=== PATIENT | female | born 1950 | race Caucasian/White ===

== ENCOUNTER 2021-03-05 15:07 | Inpatient (IN) | payer MEDICARE, MEDICAID ==
[2021-03-05 19:34] LABS: #Monocytes 0.6 10x3/uL (0.0-1.1); #Neutrophils 5.6 10x3/uL (1.5-8.4); %Basophils 0.3 % (0.0-2.0); %Eosinophils 0.4 % (0.0-6.0); %Lymphocytes 9.9 % (18.0-47.0); %Monocytes 8.6 % (0.0-10.0); %Neutrophils 80.4 % (40.0-75.0); Hemoglobin 9.4 g/dL (12.0-15.5); Mean Corpuscular HGB CONC 33.8 g/dL (32.0-36.0); Mean Corpuscular Hemoglobin 30.1 pg (27.0-33.0); Mean Corpuscular Volume 89.1 fl (81.6-98.3); Mean Platelet Volume 11.3 fl (7.4-10.4); Platelet Count 101 10x3/uL (150-450); RBC Distribution Width 13.9 % (11.5-14.5); Red Blood Cell (RBC) Count 3.12 10x6/uL (3.90-5.03)
[2021-03-05 19:42] LABS: ALT (SGPT) 7 U/L (8-55); AST (SGOT) 10 U/L (5-34); Albumin 3.2 g/dL (3.4-4.8); Alkaline Phosphatase 93 U/L (40-110); Anion Gap 13 mmol/L (10-20); BUN (Urea Nitrogen) 21 mg/dL (9.8-20.1); Bilirubin, Total 0.9 mg/dL (0.2-1.2); Calc. Creatinine Clearance 0 mL/min (70-130); Calcium 8.8 mg/dL (7.8-10.44); Carbon Dioxide 31 mmol/L (23-31); Chloride 92 mmol/L (98-107); Protein, Total 6.2 g/dL (5.8-8.1); Sodium 133 mmol/L (136-145)
[2021-03-05 19:44] LABS: Glucose 721 mg/dL (80-115)
[2021-03-05] MEDS ORDERED: HumaLOG 300 UNITS/3 ML VIAL SC SCH (20:30)
[2021-03-05] MEDS ORDERED: Potassium Chloride 20 MEQ TAB ONE (20:42)
[2021-03-06] MEDS ORDERED: Dextrose 50% Abboject 50 ML SYRINGE SLOW IVP PRN ×2 (01:01→05:46)
[2021-03-06] MEDS ORDERED: Insulin Regular 300 UNITS/3 ML VIAL SC PRN (01:01)
[2021-03-06] MEDS ORDERED: Dextrose 5% in Water 1,000 ML IV PRN ×2 (01:01→05:46)
[2021-03-06] MEDS ORDERED: Vancomycin 1 GM in Premix Bag 1 BAG IVPB PRN (01:01)
[2021-03-06] MEDS ORDERED: Nitroglycerin 0.4 MG TAB (25 Tab Bottle) SL PRN (01:19)
[2021-03-06] MEDS ORDERED: Ondansetron PF 4 MG/2 ML Vial IVP PRN (02:36)
[2021-03-06] MEDS ORDERED: Acetaminophen 325 MG TAB PO PRN (02:37)
[2021-03-06] MEDS ORDERED: Potassium Chloride 20 MEQ TAB PO SCH ×2 (03:00→06:00)
[2021-03-06] MEDS: NS 0.9% w/ 20 MEQ KCL 1,000 ML/1,000 ML BAG IV SCH ×3 (03:15→17:18)
[2021-03-06] MEDS ORDERED: Vancomycin HCl 500 MG in Sodium Chloride 0.9% 100 ML IVPB SCH (03:15)
[2021-03-06] MEDS ORDERED: FLU VACC QS2021-22(65YR UP)/PF 240 MCG/0.7 ML SYRINGE IM ONE (03:45)
[2021-03-06] MEDS: Cefepime 2 GM in Sodium Chloride 0.9% 100 ML IVPB SCH ×2 (03:46→17:18)
[2021-03-06 04:13] LABS: #Eosinphils 0.1 10x3/uL (0.0-0.5); #Monocytes 0.7 10x3/uL (0.0-1.1); #Neutrophils 6.2 10x3/uL (1.5-8.4); %Basophils 0.4 % (0.0-2.0); %Eosinophils 0.8 % (0.0-6.0); %Lymphocytes 11.4 % (18.0-47.0); %Monocytes 8.7 % (0.0-10.0); %Neutrophils 78.2 % (40.0-75.0); Hemoglobin 9.1 g/dL (12.0-15.5); Mean Corpuscular HGB CONC 34.1 g/dL (32.0-36.0); Mean Corpuscular Hemoglobin 30.4 pg (27.0-33.0); Mean Corpuscular Volume 89.3 fl (81.6-98.3); Mean Platelet Volume 11.7 fl (7.4-10.4); Platelet Count 115 10x3/uL (150-450); RBC Distribution Width 13.9 % (11.5-14.5); Red Blood Cell (RBC) Count 2.99 10x6/uL (3.90-5.03); White Blood Cell (WBC) Count 7.9 10x3/uL (3.5-10.5)
[2021-03-06 04:39] LABS: Anion Gap 15 mmol/L (10-20); BUN (Urea Nitrogen) 18 mg/dL (9.8-20.1); Calc. Creatinine Clearance 39 mL/min (70-130); Calcium 8.2 mg/dL (7.8-10.44); Carbon Dioxide 28 mmol/L (23-31); Chloride 100 mmol/L (98-107); Glucose 201 mg/dL (80-115); Magnesium 1.7 mg/dL (1.6-2.6); Sodium 140 mmol/L (136-145)
[2021-03-06 04:49] LABS: Potassium 2.9 mmol/L (3.5-5.1)
[2021-03-06 05:24] LABS: Amphetamine Not Detected (NotDetected); Barbiturates Screen Not Detected (NotDetected); Benzodiazepine Screen Not Detected (NotDetected); Cocaine Metabolite Screen Not Detected (NotDetected); Methadone Not Detected (NotDetected); Methamphetamine Not Detected (NotDetected); Opiate Screen Not Detected (NotDetected); Oxycodone Screen Not Detected (NotDetected); Phencyclidine (PCP) Not Detected (NotDetected); THC/Cannabinoid Screen Not Detected (NotDetected); Tricyclic Screen Not Detected (NotDetected)
[2021-03-06] MEDS ORDERED: Labetalol HCl 100 MG/20 ML VIAL SLOW IVP SCH (06:00)
[2021-03-06] MEDS ORDERED: Enoxaparin Sodium 30 MG/0.3 ML SYRINGE ONE (08:45)
[2021-03-06] MEDS: Aspirin 81 mg Enteric Coated Tablet PO SCH (08:47)
[2021-03-06] MEDS: Labetalol HCl 100 MG TAB PO SCH ×2 (08:48→20:31)
[2021-03-06] MEDS: Cholecalciferol 1,000 UNITS (25 MCG) TAB PO SCH ×2 (08:48→20:14)
[2021-03-06] MEDS ORDERED: Lantus 1000 UNITS/10 ML VIAL SC SCH ×2 (09:00→21:00)
[2021-03-06] MEDS ORDERED: Enoxaparin Sodium 30 MG/0.3 ML SYRINGE SC SCH (09:00)
[2021-03-06] MEDS: HumaLOG 300 UNITS/3 ML VIAL SC PRN ×3 (12:40→20:16)
[2021-03-06 16:08] LABS: SARS-CoV-2 PCR by NAA Not Detected (NotDetected)
[2021-03-06] MEDS: Atorvastatin Calcium 40 MG TAB PO SCH (20:14)
[2021-03-07] MEDS ORDERED: cloNIDine 0.1 MG TAB PO SCH (03:30)
[2021-03-07] MEDS: Cefepime 2 GM in Sodium Chloride 0.9% 100 ML IVPB SCH ×2 (03:51→16:53)
[2021-03-07 04:10] LABS: #Eosinphils 0.1 10x3/uL (0.0-0.5); #Monocytes 0.5 10x3/uL (0.0-1.1); #Neutrophils 3.9 10x3/uL (1.5-8.4); %Basophils 0.2 % (0.0-2.0); %Eosinophils 1.7 % (0.0-6.0); %Lymphocytes 16.7 % (18.0-47.0); %Monocytes 9.3 % (0.0-10.0); %Neutrophils 71.7 % (40.0-75.0); Hemoglobin 8.7 g/dL (12.0-15.5); Mean Corpuscular HGB CONC 32.3 g/dL (32.0-36.0); Mean Corpuscular Hemoglobin 29.8 pg (27.0-33.0); Mean Corpuscular Volume 92.1 fl (81.6-98.3); Mean Platelet Volume 12.1 fl (7.4-10.4); Platelet Count 104 10x3/uL (150-450); RBC Distribution Width 14.3 % (11.5-14.5); Red Blood Cell (RBC) Count 2.92 10x6/uL (3.90-5.03); White Blood Cell (WBC) Count 5.4 10x3/uL (3.5-10.5)
[2021-03-07 04:29] LABS: Vancomycin, Random 5.3 ug/mL (See Comment)
[2021-03-07] MEDS: NS 0.9% w/ 20 MEQ KCL 1,000 ML/1,000 ML BAG IV SCH (04:41)
[2021-03-07 04:52] LABS: Free T4 (Free Thyroxine) 1.34 ng/dL (0.70-1.48)
[2021-03-07 05:03] LABS: Anion Gap 9 mmol/L (10-20); BUN (Urea Nitrogen) 21 mg/dL (9.8-20.1); CRP (Inflammatory) 9.21 mg/dL (= or < 0.5); Calc. Creatinine Clearance 42 mL/min (70-130); Carbon Dioxide 26 mmol/L (23-31); Chloride 106 mmol/L (98-107); Glucose 330 mg/dL (80-115); Magnesium 1.6 mg/dL (1.6-2.6); Potassium 4.4 mmol/L (3.5-5.1); Sodium 137 mmol/L (136-145)
[2021-03-07] MEDS: HumaLOG 300 UNITS/3 ML VIAL SC PRN ×4 (05:30→20:17)
[2021-03-07] MEDS: Vancomycin HCl 750 MG in Sodium Chloride 0.9% 250 ML 250 ML IVPB SCH (05:38)
[2021-03-07] MEDS ORDERED: Furosemide 40 MG/4 ML VIAL SLOW IVP SCH (06:30)
[2021-03-07] MEDS ORDERED: Labetalol HCl 100 MG/20 ML VIAL SLOW IVP SCH (06:30)
[2021-03-07] MEDS ORDERED: Potassium Bicarbonate/Cit Ac 20 MEQ TAB PO SCH (07:30)
[2021-03-07] MEDS: Aspirin 81 mg Enteric Coated Tablet PO SCH (08:52)
[2021-03-07] MEDS: Labetalol HCl 100 MG TAB PO SCH (08:52)
[2021-03-07] MEDS: Enoxaparin Sodium 40 MG/0.4 ML SYRINGE SC SCH (08:52)
[2021-03-07] MEDS: Cholecalciferol 1,000 UNITS (25 MCG) TAB PO SCH ×2 (08:52→20:30)
[2021-03-07] MEDS ORDERED: Lantus 1000 UNITS/10 ML VIAL SC SCH (09:00)
[2021-03-07 12:17] LABS: Hemoglobin A1c 12.5 % (4.0-6.0)
[2021-03-07] MEDS ORDERED: HYDROcodone/Acetaminophen 5/325 mg Tablet PO PRN (14:22)
[2021-03-07] MEDS ORDERED: Lisinopril 10 MG TAB PO SCH (16:30)
[2021-03-07] MEDS ORDERED: hydrALAZINE 20 MG/ML VIAL SLOW IVP SCH (16:30)
[2021-03-07] MEDS: Lantus 1000 UNITS/10 ML VIAL SC SCH (20:16)
[2021-03-07] MEDS: Amlodipine 5 MG TAB PO SCH (20:30)
[2021-03-07] MEDS: Atorvastatin Calcium 40 MG TAB PO SCH (20:30)
[2021-03-07] MEDS ORDERED: ICOSAPENT ETHYL 1 GM PO SCH (21:00)
[2021-03-07] MEDS ORDERED: Pregabalin 75 MG CAP PO SCH (22:00)
[2021-03-07] MEDS: Pregabalin 75 MG CAP PO SCH (22:24)
[2021-03-08] MEDS: Cefepime 2 GM in Sodium Chloride 0.9% 100 ML IVPB SCH ×2 (04:11→17:03)
[2021-03-08] MEDS: Vancomycin HCl 750 MG in Sodium Chloride 0.9% 250 ML 250 ML IVPB SCH (06:09)
[2021-03-08] MEDS: Pregabalin 75 MG CAP PO SCH ×4 (06:10→22:00)
[2021-03-08] MEDS ORDERED: IMATINIB MESYLATE 400 MG PO SCH (09:00)
[2021-03-08] MEDS: Enoxaparin Sodium 40 MG/0.4 ML SYRINGE SC SCH (09:10)
[2021-03-08] MEDS: Potassium Chloride 20 MEQ TAB PO SCH (09:11)
[2021-03-08] MEDS: Aspirin 81 mg Enteric Coated Tablet PO SCH (09:12)
[2021-03-08] MEDS: Lantus 1000 UNITS/10 ML VIAL SC SCH ×2 (09:12→21:00)
[2021-03-08] MEDS: Lisinopril 20 MG TAB PO SCH (09:12)
[2021-03-08] MEDS: Cholecalciferol 1,000 UNITS (25 MCG) TAB PO SCH ×2 (09:12→21:00)
[2021-03-08] MEDS: Furosemide 40 MG TAB PO SCH (09:12)
[2021-03-08] MEDS: Amlodipine 5 MG TAB PO SCH ×2 (09:12→21:00)
[2021-03-08] MEDS: Icosapent Ethyl 1 GM CAPSULE PO SCH (17:04)
[2021-03-08] MEDS: Atorvastatin Calcium 40 MG TAB PO SCH (21:00)
[2021-03-08] MEDS ORDERED: Dextrose 50% Abboject 50 ML SYRINGE SLOW IVP SCH (22:30)
[2021-03-09] MEDS: Cefepime 2 GM in Sodium Chloride 0.9% 100 ML IVPB SCH ×2 (03:49→17:24)
[2021-03-09] MEDS: Vancomycin HCl 750 MG in Sodium Chloride 0.9% 250 ML 250 ML IVPB SCH (05:08)
[2021-03-09 05:31] LABS: #Eosinphils 0.1 10x3/uL (0.0-0.5); #Monocytes 0.5 10x3/uL (0.0-1.1); #Neutrophils 6.9 10x3/uL (1.5-8.4); %Basophils 0.4 % (0.0-2.0); %Eosinophils 0.7 % (0.0-6.0); %Monocytes 6.1 % (0.0-10.0); %Neutrophils 82.4 % (40.0-75.0); Hemoglobin 9.3 g/dL (12.0-15.5); Mean Corpuscular HGB CONC 33.1 g/dL (32.0-36.0); Mean Corpuscular Volume 90.6 fl (81.6-98.3); Mean Platelet Volume 12.1 fl (7.4-10.4); Platelet Count 161 10x3/uL (150-450); RBC Distribution Width 14.5 % (11.5-14.5); White Blood Cell (WBC) Count 8.4 10x3/uL (3.5-10.5)
[2021-03-09 05:44] LABS: Vancomycin, Trough 16.1 ug/mL
[2021-03-09 05:45] LABS: Anion Gap 14 mmol/L (10-20); BUN (Urea Nitrogen) 25 mg/dL (9.8-20.1); CRP (Inflammatory) 3.83 mg/dL (= or < 0.5); Calc. Creatinine Clearance 39 mL/min (70-130); Calcium 8.4 mg/dL (7.8-10.44); Carbon Dioxide 28 mmol/L (23-31); Chloride 105 mmol/L (98-107); Glucose 140 mg/dL (80-115); Potassium 4.1 mmol/L (3.5-5.1); Sodium 143 mmol/L (136-145)
[2021-03-09] MEDS: Pregabalin 75 MG CAP PO SCH (05:55)
[2021-03-09] MEDS ORDERED: Labetalol HCl 100 MG/20 ML VIAL SLOW IVP SCH (06:00)
[2021-03-09 06:16] LABS: Prothrombin Time 11.2 sec (9.5-12.1)
[2021-03-09] MEDS: Sodium Chloride 0.9% 1,000 ML IV SCH (10:11)
[2021-03-09] MEDS: Potassium Chloride 20 MEQ TAB PO SCH (10:12)
[2021-03-09] MEDS: Lisinopril 20 MG TAB PO SCH (10:12)
[2021-03-09] MEDS: Cholecalciferol 1,000 UNITS (25 MCG) TAB PO SCH (10:12)
[2021-03-09] MEDS: Aspirin 81 mg Enteric Coated Tablet PO SCH (10:12)
[2021-03-09] MEDS: Amlodipine 5 MG TAB PO SCH (10:13)
[2021-03-09] MEDS: Furosemide 40 MG TAB PO SCH (10:13)
[2021-03-09] MEDS: Icosapent Ethyl 1 GM CAPSULE PO SCH ×2 (10:14→17:25)
[2021-03-09] MEDS: Enoxaparin Sodium 40 MG/0.4 ML SYRINGE SC SCH (10:14)
[2021-03-09] MEDS: Lantus 1000 UNITS/10 ML VIAL SC SCH (10:15)
[2021-03-09] MEDS: Labetalol HCl 100 MG/20 ML VIAL SLOW IVP SCH (22:17)
[2021-03-10] MEDS: Sodium Chloride 0.9% 1,000 ML IV SCH ×3 (02:00→17:08)
[2021-03-10] MEDS: Amlodipine 5 MG TAB PO SCH ×4 (02:46→22:30)
[2021-03-10] MEDS: Atorvastatin Calcium 40 MG TAB PO SCH ×2 (02:47→22:31)
[2021-03-10] MEDS: Lantus 1000 UNITS/10 ML VIAL SC SCH ×3 (02:47→22:31)
[2021-03-10] MEDS: Cholecalciferol 1,000 UNITS (25 MCG) TAB PO SCH ×3 (02:47→08:52)
[2021-03-10] MEDS: Cefepime 2 GM in Sodium Chloride 0.9% 100 ML IVPB SCH ×2 (04:40→17:09)
[2021-03-10] MEDS: Vancomycin HCl 750 MG in Sodium Chloride 0.9% 250 ML 250 ML IVPB SCH (05:22)
[2021-03-10 08:11] LABS: #Eosinphils 0.1 10x3/uL (0.0-0.5); #Neutrophils 11.3 10x3/uL (1.5-8.4); %Basophils 0.2 % (0.0-2.0); %Eosinophils 0.4 % (0.0-6.0); %Lymphocytes 8.4 % (18.0-47.0); %Neutrophils 83.5 % (40.0-75.0); Hemoglobin 8.5 g/dL (12.0-15.5); Mean Corpuscular HGB CONC 32.1 g/dL (32.0-36.0); Mean Corpuscular Hemoglobin 29.8 pg (27.0-33.0); Mean Platelet Volume 11.8 fl (7.4-10.4); Platelet Count 152 10x3/uL (150-450); RBC Distribution Width 14.6 % (11.5-14.5); Red Blood Cell (RBC) Count 2.85 10x6/uL (3.90-5.03); White Blood Cell (WBC) Count 13.5 10x3/uL (3.5-10.5)
[2021-03-10 08:46] LABS: Anion Gap 16 mmol/L (10-20); BUN (Urea Nitrogen) 42 mg/dL (9.8-20.1); Calc. Creatinine Clearance 19 mL/min (70-130); Calcium 8.3 mg/dL (7.8-10.44); Carbon Dioxide 22 mmol/L (23-31); Cardiac Risk 6.2 (Less than 4.5); Chloride 109 mmol/L (98-107); Cholesterol 131 mg/dl (< 200 Desired); Glucose 205 mg/dL (80-115); HDL Cholesterol 21 mg/dL (>60 Neg Risk); LDL Cholesterol, Calculated 71 mg/dL; Potassium 4.3 mmol/L (3.5-5.1); Sodium 143 mmol/L (136-145); Triglycerides 195 mg/dL (Less than 150)
[2021-03-10] MEDS: Enoxaparin Sodium 40 MG/0.4 ML SYRINGE SC SCH (08:47)
[2021-03-10] MEDS: Potassium Chloride 20 MEQ TAB PO SCH ×2 (08:47→08:52)
[2021-03-10] MEDS: Aspirin 81 mg Enteric Coated Tablet PO SCH ×2 (08:48→08:52)
[2021-03-10] MEDS: Lisinopril 20 MG TAB PO SCH ×2 (08:48→08:51)
[2021-03-10] MEDS: Furosemide 40 MG TAB PO SCH ×2 (08:48→08:52)
[2021-03-10] MEDS: Icosapent Ethyl 1 GM CAPSULE PO SCH ×2 (08:48→08:52)
[2021-03-10] MEDS ORDERED: Sodium Chloride 0.9% 1,000 ML IV SCH (08:53)
[2021-03-10] MEDS: Enoxaparin Sodium 30 MG/0.3 ML SYRINGE SC SCH (09:52)
[2021-03-10] MEDS: Metoprolol Tartrate 5 MG/5 ML VIAL IVP SCH ×2 (13:42→17:08)
[2021-03-11] MEDS: Metoprolol Tartrate 5 MG/5 ML VIAL IVP SCH ×5 (02:09→22:46)
[2021-03-11 02:44] LABS: Bilirubin Neg (Negative); Blood, Urine 250 (Negative); Clarity Cloudy (Clear); Glucose, Urine (Dipstick) 250 mg/dL (Negative); Ketone, Urine 15 mg/dL (Negative); Leukocyte Negative (Negative); Nitrite Negative (Negative); Protein, Urine (Dipstick) 100 mg/dl (Neg-Trace); Urobilinogen Normal mg/dL (Less than 2)
[2021-03-11 02:54] LABS: RBC/HPF 21-50 HPF (0-3)
[2021-03-11 02:55] LABS: Bacteria/HPF 1+ HPF (None Seen); Broad Cast 0-3 LPF (None Seen); Oval Fat Bodies/HPF 1+ HPF (None Seen); Squamous Epithelial 0-3 HPF (0-3)
[2021-03-11 02:56] LABS: Renal Epithelial 0-3 HPF (None Seen)
[2021-03-11] MEDS: Cefepime 1 GM in Sodium Chloride 0.9% 100 ML IVPB SCH ×2 (04:31→19:13)
[2021-03-11 05:30] LABS: Vancomycin, Trough 25.4 ug/mL
[2021-03-11] MEDS: Vancomycin HCl 750 MG in Sodium Chloride 0.9% 250 ML 250 ML IVPB SCH (05:35)
[2021-03-11] MEDS: Sodium Chloride 0.9% 1,000 ML IV SCH (06:16)
[2021-03-11 07:03] LABS: Anion Gap 18 mmol/L (10-20); BUN (Urea Nitrogen) 49 mg/dL (9.8-20.1); Calc. Creatinine Clearance 17 mL/min (70-130); Carbon Dioxide 19 mmol/L (23-31); Chloride 114 mmol/L (98-107); Glucose 185 mg/dL (80-115); Sodium 147 mmol/L (136-145)
[2021-03-11] MEDS: Dextrose 5% in Water 1,000 ML IV SCH ×2 (09:59→20:52)
[2021-03-11] MEDS: Enoxaparin Sodium 30 MG/0.3 ML SYRINGE SC SCH (10:02)
[2021-03-11] MEDS: Icosapent Ethyl 1 GM CAPSULE PO SCH (12:43)
[2021-03-11] MEDS: Amlodipine 5 MG TAB PO SCH (12:43)
[2021-03-11] MEDS: Lantus 1000 UNITS/10 ML VIAL SC SCH ×2 (12:44→22:47)
[2021-03-11] MEDS: Cholecalciferol 1,000 UNITS (25 MCG) TAB PO SCH (12:44)
[2021-03-11] MEDS: hydrALAZINE 20 MG/ML VIAL SLOW IVP PRN (20:54)
[2021-03-12] MEDS ORDERED: Metoprolol Tartrate 5 MG/5 ML VIAL IVP SCH (01:30)
[2021-03-12] MEDS ORDERED: Ketorolac Tromethamine 30 MG/ML VIAL IVP SCH (01:30)
[2021-03-12] MEDS: Cefepime 1 GM in Sodium Chloride 0.9% 100 ML IVPB SCH ×2 (05:27→17:54)
[2021-03-12] MEDS: HumaLOG 300 UNITS/3 ML VIAL SC PRN (05:30)
[2021-03-12] MEDS ORDERED: Ziprasidone 20 MG VIAL IM SCH (06:15)
[2021-03-12] MEDS ORDERED: Sterile Water 10 ML ONE (06:26)
[2021-03-12] MEDS: Vancomycin HCl 500 MG in Sodium Chloride 0.9% 100 ML IVPB SCH (06:49)
[2021-03-12] MEDS: Metoprolol Tartrate 5 MG/5 ML VIAL IVP SCH (06:49)
[2021-03-12 09:30] LABS: Anion Gap 15 mmol/L (10-20); BUN (Urea Nitrogen) 32 mg/dL (9.8-20.1); Calc. Creatinine Clearance 34 mL/min (70-130); Calcium 8.4 mg/dL (7.8-10.44); Carbon Dioxide 25 mmol/L (23-31); Chloride 109 mmol/L (98-107); Glucose 192 mg/dL (80-115); Sodium 146 mmol/L (136-145)
[2021-03-12] MEDS: Dextrose 5% in Water 1,000 ML IV SCH (09:47)
[2021-03-12] MEDS: Enoxaparin Sodium 30 MG/0.3 ML SYRINGE SC SCH (09:47)
[2021-03-12] MEDS: Lantus 1000 UNITS/10 ML VIAL SC SCH (09:48)
[2021-03-12] MEDS ORDERED: Magnesium 2 GM/50 ML 2 GM in Premix Bag 1 BAG IVPB SCH (11:30)
[2021-03-12 13:12] LABS: Magnesium 1.6 mg/dL (1.6-2.6)
[2021-03-12] MEDS ORDERED: Lorazepam 2 MG/ML VIAL SLOW IVP PRN (13:59)
[2021-03-12] MEDS: Potassium Chloride 20 MEQ in Premix Bag 1 BAG IVPB SCH (15:24)
[2021-03-13] MEDS: Lantus 1000 UNITS/10 ML VIAL SC SCH ×3 (01:40→22:50)
[2021-03-13] MEDS: Dextrose 5% in Water 1,000 ML IV SCH ×3 (03:35→23:10)
[2021-03-13] MEDS: Cefepime 1 GM in Sodium Chloride 0.9% 100 ML IVPB SCH ×2 (04:21→17:34)
[2021-03-13] MEDS: Vancomycin HCl 500 MG in Sodium Chloride 0.9% 100 ML IVPB SCH (05:57)
[2021-03-13] MEDS: Diltiazem 125 MG in Sodium Chloride 0.9% 100 ML IVPB SCH (05:58)
[2021-03-13 08:36] LABS: Anion Gap 14 mmol/L (10-20); BUN (Urea Nitrogen) 35 mg/dL (9.8-20.1); Calc. Creatinine Clearance 30 mL/min (70-130); Calcium 8.5 mg/dL (7.8-10.44); Carbon Dioxide 23 mmol/L (23-31); Chloride 109 mmol/L (98-107); Glucose 122 mg/dL (80-115); Magnesium 2.2 mg/dL (1.6-2.6); Potassium 3.5 mmol/L (3.5-5.1); Sodium 142 mmol/L (136-145)
[2021-03-13] MEDS: Enoxaparin Sodium 30 MG/0.3 ML SYRINGE SC SCH (09:01)
[2021-03-13] MEDS ORDERED: Potassium Chloride 20 MEQ TAB PO SCH (10:30)
[2021-03-13] MEDS ORDERED: Potassium Chloride 20 MEQ in Premix Bag 1 BAG IVPB SCH (12:00)
[2021-03-14] MEDS: Cefepime 1 GM in Sodium Chloride 0.9% 100 ML IVPB SCH ×2 (03:05→16:42)
[2021-03-14 05:38] LABS: #Basophils 0.1 10x3/uL (0.0-0.2); #Eosinphils 0.3 10x3/uL (0.0-0.5); #Monocytes 0.8 10x3/uL (0.0-1.1); #Neutrophils 8.1 10x3/uL (1.5-8.4); %Basophils 0.5 % (0.0-2.0); %Eosinophils 2.9 % (0.0-6.0); %Lymphocytes 12.7 % (18.0-47.0); %Neutrophils 75.3 % (40.0-75.0); Hemoglobin 9.4 g/dL (12.0-15.5); Mean Corpuscular Hemoglobin 29.5 pg (27.0-33.0); Mean Corpuscular Volume 89.3 fl (81.6-98.3); Mean Platelet Volume 11.5 fl (7.4-10.4); Platelet Count 148 10x3/uL (150-450); RBC Distribution Width 14.4 % (11.5-14.5); Red Blood Cell (RBC) Count 3.19 10x6/uL (3.90-5.03); White Blood Cell (WBC) Count 10.8 10x3/uL (3.5-10.5)
[2021-03-14 05:49] LABS: Vancomycin, Trough 18.2 ug/mL
[2021-03-14 05:51] LABS: Anion Gap 13 mmol/L (10-20); BUN (Urea Nitrogen) 35 mg/dL (9.8-20.1); Calc. Creatinine Clearance 28 mL/min (70-130); Calcium 8.4 mg/dL (7.8-10.44); Carbon Dioxide 23 mmol/L (23-31); Chloride 107 mmol/L (98-107); Glucose 144 mg/dL (80-115); Potassium 3.5 mmol/L (3.5-5.1); Sodium 139 mmol/L (136-145)
[2021-03-14] MEDS: Vancomycin HCl 500 MG in Sodium Chloride 0.9% 100 ML IVPB SCH (06:51)
[2021-03-14] MEDS: Enoxaparin Sodium 30 MG/0.3 ML SYRINGE SC SCH (09:36)
[2021-03-14] MEDS: Lantus 1000 UNITS/10 ML VIAL SC SCH ×2 (09:47→22:34)
[2021-03-14] MEDS ORDERED: Potassium Chloride 20 MEQ in Premix Bag 1 BAG IVPB SCH (11:00)
[2021-03-14] MEDS: Dextrose 5% in Water 1,000 ML IV SCH (13:34)
[2021-03-14] MEDS: Potassium Chloride 20 MEQ in Premix Bag 1 BAG IVPB SCH ×2 (13:34→14:40)
[2021-03-14] MEDS: Metoprolol Tartrate 5 MG/5 ML VIAL IVP SCH ×2 (13:34→19:21)
[2021-03-15] MEDS: Metoprolol Tartrate 5 MG/5 ML VIAL IVP SCH ×4 (01:53→18:45)
[2021-03-15] MEDS: Cefepime 1 GM in Sodium Chloride 0.9% 100 ML IVPB SCH ×2 (04:24→15:41)
[2021-03-15 05:14] LABS: #Basophils 0.1 10x3/uL (0.0-0.2); #Eosinphils 0.3 10x3/uL (0.0-0.5); #Monocytes 0.8 10x3/uL (0.0-1.1); #Neutrophils 8.5 10x3/uL (1.5-8.4); %Basophils 0.5 % (0.0-2.0); %Eosinophils 2.4 % (0.0-6.0); %Monocytes 6.8 % (0.0-10.0); %Neutrophils 75.8 % (40.0-75.0); Hemoglobin 9.3 g/dL (12.0-15.5); Mean Corpuscular HGB CONC 33.1 g/dL (32.0-36.0); Mean Corpuscular Hemoglobin 29.3 pg (27.0-33.0); Mean Corpuscular Volume 88.6 fl (81.6-98.3); Mean Platelet Volume 12.4 fl (7.4-10.4); Platelet Count 143 10x3/uL (150-450); RBC Distribution Width 14.4 % (11.5-14.5); Red Blood Cell (RBC) Count 3.17 10x6/uL (3.90-5.03); White Blood Cell (WBC) Count 11.3 10x3/uL (3.5-10.5)
[2021-03-15 05:29] LABS: Anion Gap 13 mmol/L (10-20); BUN (Urea Nitrogen) 37 mg/dL (9.8-20.1); Calc. Creatinine Clearance 24 mL/min (70-130); Calcium 8.4 mg/dL (7.8-10.44); Carbon Dioxide 22 mmol/L (23-31); Chloride 107 mmol/L (98-107); Glucose 98 mg/dL (80-115); Magnesium 1.9 mg/dL (1.6-2.6); Sodium 138 mmol/L (136-145)
[2021-03-15] MEDS: Vancomycin HCl 500 MG in Sodium Chloride 0.9% 100 ML IVPB SCH (05:58)
[2021-03-15] MEDS: Dextrose 5% in Water 1,000 ML IV SCH (06:01)
[2021-03-15] MEDS: Enoxaparin Sodium 30 MG/0.3 ML SYRINGE SC SCH (08:57)
[2021-03-15] MEDS: Lantus 1000 UNITS/10 ML VIAL SC SCH ×2 (08:57→22:12)
[2021-03-15] MEDS: Pregabalin 75 MG CAP PO SCH ×2 (15:41→22:13)
[2021-03-16] MEDS: Metoprolol Tartrate 5 MG/5 ML VIAL IVP SCH ×4 (00:56→20:13)
[2021-03-16] MEDS: Cefepime 1 GM in Sodium Chloride 0.9% 100 ML IVPB SCH ×2 (03:45→17:27)
[2021-03-16] MEDS: Dextrose 5% in Water 1,000 ML IV SCH ×2 (03:54→08:54)
[2021-03-16] MEDS: Acetaminophen 325 MG TAB PO PRN ×2 (05:23→21:27)
[2021-03-16] MEDS: HumaLOG 300 UNITS/3 ML VIAL SC PRN (05:36)
[2021-03-16 05:42] LABS: Vancomycin, Trough 24.7 ug/mL
[2021-03-16 05:43] LABS: Anion Gap 14 mmol/L (10-20); BUN (Urea Nitrogen) 41 mg/dL (9.8-20.1); Calc. Creatinine Clearance 19 mL/min (70-130); Carbon Dioxide 19 mmol/L (23-31); Chloride 108 mmol/L (98-107); Glucose 193 mg/dL (80-115); Magnesium 1.7 mg/dL (1.6-2.6); Potassium 4.1 mmol/L (3.5-5.1); Sodium 137 mmol/L (136-145)
[2021-03-16 05:45] LABS: #Eosinphils 0.2 10x3/uL (0.0-0.5); #Monocytes 0.9 10x3/uL (0.0-1.1); #Neutrophils 10.5 10x3/uL (1.5-8.4); %Basophils 0.3 % (0.0-2.0); %Eosinophils 1.4 % (0.0-6.0); %Lymphocytes 10.5 % (18.0-47.0); %Monocytes 6.6 % (0.0-10.0); %Neutrophils 79.8 % (40.0-75.0); Hemoglobin 7.9 g/dL (12.0-15.5); Mean Corpuscular HGB CONC 33.8 g/dL (32.0-36.0); Mean Corpuscular Hemoglobin 29.8 pg (27.0-33.0); Mean Corpuscular Volume 88.3 fl (81.6-98.3); Mean Platelet Volume 12.4 fl (7.4-10.4); Platelet Count 127 10x3/uL (150-450); RBC Distribution Width 14.5 % (11.5-14.5); Red Blood Cell (RBC) Count 2.65 10x6/uL (3.90-5.03); White Blood Cell (WBC) Count 13.2 10x3/uL (3.5-10.5)
[2021-03-16] MEDS ORDERED: Vancomycin HCl 500 MG in Sodium Chloride 0.9% 100 ML IVPB PRN (06:00)
[2021-03-16] MEDS: Pregabalin 75 MG CAP PO SCH ×3 (06:24→21:28)
[2021-03-16] MEDS: Lantus 1000 UNITS/10 ML VIAL SC SCH ×2 (08:55→21:28)
[2021-03-16] MEDS: Enoxaparin Sodium 30 MG/0.3 ML SYRINGE SC SCH (08:55)
[2021-03-16] MEDS: Diltiazem 125 MG in Sodium Chloride 0.9% 100 ML IVPB SCH (21:30)
[2021-03-17] MEDS: Metoprolol Tartrate 5 MG/5 ML VIAL IVP SCH ×2 (01:06→06:02)
[2021-03-17] MEDS: Cefepime 1 GM in Sodium Chloride 0.9% 100 ML IVPB SCH ×2 (04:18→15:35)
[2021-03-17] MEDS: Pregabalin 75 MG CAP PO SCH ×2 (05:40→15:39)
[2021-03-17 07:22] LABS: Vancomycin, Random 21.2 ug/mL (See Comment)
[2021-03-17] MEDS: hydrALAZINE 20 MG/ML VIAL SLOW IVP PRN (08:27)
[2021-03-17] MEDS: Enoxaparin Sodium 30 MG/0.3 ML SYRINGE SC SCH (08:28)
[2021-03-17] MEDS: Lantus 1000 UNITS/10 ML VIAL SC SCH ×2 (08:29→22:28)
[2021-03-17] MEDS: Acetaminophen 325 MG TAB PO PRN (08:45)
[2021-03-17] MEDS ORDERED: Magnesium 2 GM/50 ML 2 GM in Premix Bag 1 BAG IVPB SCH (09:15)
[2021-03-17 09:33] LABS: #Basophils 0.1 10x3/uL (0.0-0.2); #Eosinphils 0.3 10x3/uL (0.0-0.5); #Monocytes 0.8 10x3/uL (0.0-1.1); %Basophils 0.5 % (0.0-2.0); %Eosinophils 2.4 % (0.0-6.0); %Lymphocytes 14.6 % (18.0-47.0); %Monocytes 6.9 % (0.0-10.0); %Neutrophils 73.4 % (40.0-75.0); Hemoglobin 7.8 g/dL (12.0-15.5); Mean Corpuscular HGB CONC 33.2 g/dL (32.0-36.0); Mean Corpuscular Hemoglobin 29.9 pg (27.0-33.0); Mean Platelet Volume 12.1 fl (7.4-10.4); Platelet Count 132 10x3/uL (150-450); RBC Distribution Width 14.8 % (11.5-14.5); Red Blood Cell (RBC) Count 2.61 10x6/uL (3.90-5.03)
[2021-03-17 09:51] LABS: Anion Gap 15 mmol/L (10-20); BUN (Urea Nitrogen) 43 mg/dL (9.8-20.1); Calc. Creatinine Clearance 18 mL/min (70-130); Calcium 8.3 mg/dL (7.8-10.44); Carbon Dioxide 22 mmol/L (23-31); Chloride 107 mmol/L (98-107); Glucose 138 mg/dL (80-115); Magnesium 1.7 mg/dL (1.6-2.6); Potassium 3.8 mmol/L (3.5-5.1); Sodium 140 mmol/L (136-145)
[2021-03-17] MEDS ORDERED: Amlodipine 5 MG TAB PO SCH (10:45)
[2021-03-17 17:44] LABS: SARS-CoV-2 PCR by NAA Not Detected (NotDetected)
[2021-03-17] MEDS: Icosapent Ethyl 1 GM CAPSULE PO SCH (19:28)
[2021-03-17] MEDS ORDERED: Dextrose 5% in Water 1,000 ML ONE (21:23)
[2021-03-17] MEDS: Dextrose 5% in Water 1,000 ML IV SCH (21:26)
[2021-03-17] MEDS: Amlodipine 5 MG TAB PO SCH (21:27)
[2021-03-17] MEDS: Cholecalciferol 1,000 UNITS (25 MCG) TAB PO SCH (21:27)
[2021-03-17] MEDS: Metoprolol Tartrate 25 MG TAB PO SCH (21:27)
[2021-03-17] MEDS: HumaLOG 300 UNITS/3 ML VIAL SC PRN (21:41)
[2021-03-17] MEDS: Atorvastatin Calcium 40 MG TAB PO SCH (21:47)
[2021-03-18] MEDS: Pregabalin 75 MG CAP PO SCH ×4 (01:56→21:49)
[2021-03-18] MEDS: Cefepime 1 GM in Sodium Chloride 0.9% 100 ML IVPB SCH ×2 (03:54→17:34)
[2021-03-18] MEDS: Metoprolol Tartrate 25 MG TAB PO SCH ×2 (07:02→21:41)
[2021-03-18] MEDS ORDERED: Bupivacaine PF 0.5% 30 ML VIAL ONE (11:07)
[2021-03-18] MEDS ORDERED: Neomycin-Polymyxin 1 ML AMP ONE ×2 (11:08→11:50)
[2021-03-18] MEDS ORDERED: Ondansetron PF 4 MG/2 ML Vial ONE (11:18)
[2021-03-18] MEDS ORDERED: Fentanyl 100 MCG/2 ML VIAL ONE (11:18)
[2021-03-18] MEDS ORDERED: PROPOFOL 20 ML ONE ×2 (11:18)
[2021-03-18] MEDS ORDERED: Dexamethasone 4 mg/ml Vial ONE (11:18)
[2021-03-18] MEDS ORDERED: Lidocaine 1% PF 5 ML VIAL ONE (11:18)
[2021-03-18] MEDS ORDERED: Ketamine 50 MG/ML (10ML VIAL) ONE (11:29)
[2021-03-18] MEDS ORDERED: PHENYLEPHRINE-NS 100 MCG/ML 10 ML SYRINGE ONE (11:58)
[2021-03-18] MEDS: Lantus 1000 UNITS/10 ML VIAL SC SCH ×2 (15:28→21:49)
[2021-03-18] MEDS: Cholecalciferol 1,000 UNITS (25 MCG) TAB PO SCH ×2 (15:29→21:48)
[2021-03-18] MEDS: Aspirin 81 mg Enteric Coated Tablet PO SCH (15:29)
[2021-03-18 15:30] LABS: Anion Gap 14 mmol/L (10-20); BUN (Urea Nitrogen) 47 mg/dL (9.8-20.1); Calc. Creatinine Clearance 18 mL/min (70-130); Calcium 8.5 mg/dL (7.8-10.44); Carbon Dioxide 21 mmol/L (23-31); Chloride 108 mmol/L (98-107); Glucose 161 mg/dL (80-115); Sodium 139 mmol/L (136-145)
[2021-03-18] MEDS: Amlodipine 5 MG TAB PO SCH ×2 (15:30→21:41)
[2021-03-18] MEDS: Icosapent Ethyl 1 GM CAPSULE PO SCH ×2 (15:30→18:25)
[2021-03-18] MEDS: Enoxaparin Sodium 30 MG/0.3 ML SYRINGE SC SCH (17:37)
[2021-03-18] MEDS ORDERED: traMADol HCl 50 MG TAB PO PRN ×2 (17:43→18:00)
[2021-03-18] MEDS: Dextrose 5% in Water 1,000 ML IV SCH (21:47)
[2021-03-18] MEDS: Atorvastatin Calcium 40 MG TAB PO SCH (21:48)
[2021-03-19] MEDS: Cefepime 1 GM in Sodium Chloride 0.9% 100 ML IVPB SCH (03:57)
[2021-03-19] MEDS: Pregabalin 75 MG CAP PO SCH ×3 (04:12→22:02)
[2021-03-19 05:07] LABS: Anion Gap 15 mmol/L (10-20); BUN (Urea Nitrogen) 51 mg/dL (9.8-20.1); Calc. Creatinine Clearance 17 mL/min (70-130); Calcium 8.4 mg/dL (7.8-10.44); Carbon Dioxide 20 mmol/L (23-31); Chloride 107 mmol/L (98-107); Glucose 159 mg/dL (80-115); Potassium 3.9 mmol/L (3.5-5.1); Sodium 138 mmol/L (136-145)
[2021-03-19] MEDS ORDERED: Vancomycin HCl 500 MG in Sodium Chloride 0.9% 100 ML IVPB SCH (09:00)
[2021-03-19] MEDS: Metoprolol Tartrate 25 MG TAB PO SCH ×2 (09:45→22:02)
[2021-03-19] MEDS: Aspirin 81 mg Enteric Coated Tablet PO SCH (09:45)
[2021-03-19] MEDS: Amlodipine 5 MG TAB PO SCH ×2 (09:45→22:01)
[2021-03-19] MEDS: Cholecalciferol 1,000 UNITS (25 MCG) TAB PO SCH ×2 (09:45→22:02)
[2021-03-19] MEDS: Lantus 1000 UNITS/10 ML VIAL SC SCH ×2 (09:46→22:03)
[2021-03-19] MEDS: Icosapent Ethyl 1 GM CAPSULE PO SCH ×2 (09:46→17:03)
[2021-03-19] MEDS: Enoxaparin Sodium 30 MG/0.3 ML SYRINGE SC SCH (09:46)
[2021-03-19] MEDS: Lactated Ringer's 1,000 ML IV SCH (21:00)
[2021-03-19] MEDS: Atorvastatin Calcium 40 MG TAB PO SCH (22:02)
[2021-03-20] MEDS ORDERED: Cefepime 1 GM in Sodium Chloride 0.9% 100 ML IVPB SCH (04:00)
[2021-03-20 04:19] LABS: Anion Gap 14 mmol/L (10-20); BUN (Urea Nitrogen) 57 mg/dL (9.8-20.1); Calc. Creatinine Clearance 14 mL/min (70-130); Calcium 8.4 mg/dL (7.8-10.44); Carbon Dioxide 20 mmol/L (23-31); Chloride 109 mmol/L (98-107); Glucose 136 mg/dL (80-115); Potassium 4.2 mmol/L (3.5-5.1); Sodium 139 mmol/L (136-145)
[2021-03-20] MEDS: Pregabalin 75 MG CAP PO SCH ×3 (05:19→21:47)
[2021-03-20] MEDS: Lactated Ringer's 1,000 ML IV SCH (06:42)
[2021-03-20] MEDS: Icosapent Ethyl 1 GM CAPSULE PO SCH ×2 (10:13→16:57)
[2021-03-20] MEDS: Amlodipine 5 MG TAB PO SCH ×2 (10:13→21:46)
[2021-03-20] MEDS: Lantus 1000 UNITS/10 ML VIAL SC SCH ×2 (10:14→21:47)
[2021-03-20] MEDS: Aspirin 81 mg Enteric Coated Tablet PO SCH (10:14)
[2021-03-20] MEDS: Cholecalciferol 1,000 UNITS (25 MCG) TAB PO SCH ×2 (10:14→21:46)
[2021-03-20] MEDS: Metoprolol Tartrate 25 MG TAB PO SCH ×2 (14:17→21:46)
[2021-03-20] MEDS: Enoxaparin Sodium 30 MG/0.3 ML SYRINGE SC SCH (14:17)
[2021-03-20 14:24] LABS: #Basophils 0.1 10x3/uL (0.0-0.2); #Eosinphils 0.1 10x3/uL (0.0-0.5); #Monocytes 0.7 10x3/uL (0.0-1.1); #Neutrophils 11.2 10x3/uL (1.5-8.4); %Basophils 0.4 % (0.0-2.0); %Eosinophils 0.8 % (0.0-6.0); %Lymphocytes 10.4 % (18.0-47.0); %Monocytes 5.4 % (0.0-10.0); %Neutrophils 81.9 % (40.0-75.0); Hemoglobin 7.4 g/dL (12.0-15.5); Mean Corpuscular HGB CONC 32.2 g/dL (32.0-36.0); Mean Corpuscular Hemoglobin 29.5 pg (27.0-33.0); Mean Corpuscular Volume 91.6 fl (81.6-98.3); Mean Platelet Volume 11.5 fl (7.4-10.4); Platelet Count 181 10x3/uL (150-450); RBC Distribution Width 15.4 % (11.5-14.5); Red Blood Cell (RBC) Count 2.51 10x6/uL (3.90-5.03); White Blood Cell (WBC) Count 13.7 10x3/uL (3.5-10.5)
[2021-03-20 14:35] LABS: PTT 27.3 sec (22.0-33.0); Prothrombin Time 11.4 sec (9.5-12.1)
[2021-03-20] MEDS: Sodium Chloride 0.9% 1,000 ML IV SCH (16:56)
[2021-03-20] MEDS: Atorvastatin Calcium 40 MG TAB PO SCH (21:46)
[2021-03-21 03:46] LABS: #Basophils 0.1 10x3/uL (0.0-0.2); #Eosinphils 0.2 10x3/uL (0.0-0.5); #Monocytes 0.9 10x3/uL (0.0-1.1); #Neutrophils 7.1 10x3/uL (1.5-8.4); %Basophils 0.6 % (0.0-2.0); %Eosinophils 1.7 % (0.0-6.0); %Lymphocytes 17.7 % (18.0-47.0); %Monocytes 8.8 % (0.0-10.0); %Neutrophils 69.3 % (40.0-75.0); Hemoglobin 6.4 g/dL (12.0-15.5); Mean Corpuscular HGB CONC 32.7 g/dL (32.0-36.0); Mean Platelet Volume 11.3 fl (7.4-10.4); Platelet Count 129 10x3/uL (150-450); RBC Distribution Width 15.8 % (11.5-14.5); Red Blood Cell (RBC) Count 2.13 10x6/uL (3.90-5.03); White Blood Cell (WBC) Count 10.3 10x3/uL (3.5-10.5)
[2021-03-21 03:57] LABS: Anion Gap 16 mmol/L (10-20); BUN (Urea Nitrogen) 68 mg/dL (9.8-20.1); Calc. Creatinine Clearance 11 mL/min (70-130); Calcium 8.1 mg/dL (7.8-10.44); Carbon Dioxide 21 mmol/L (23-31); Chloride 107 mmol/L (98-107); Glucose 253 mg/dL (80-115); Potassium 4.3 mmol/L (3.5-5.1); Sodium 140 mmol/L (136-145)
[2021-03-21] MEDS: Pregabalin 75 MG CAP PO SCH ×3 (05:46→22:26)
[2021-03-21] MEDS: Sodium Chloride 0.9% 1,000 ML IV SCH (06:31)
[2021-03-21] MEDS: HumaLOG 300 UNITS/3 ML VIAL SC PRN ×3 (06:35→21:31)
[2021-03-21] MEDS: Icosapent Ethyl 1 GM CAPSULE PO SCH ×2 (12:13→18:29)
[2021-03-21] MEDS: Lantus 1000 UNITS/10 ML VIAL SC SCH ×2 (12:14→21:30)
[2021-03-21] MEDS: Metoprolol Tartrate 25 MG TAB PO SCH ×2 (13:11→21:30)
[2021-03-21] MEDS: Doxycycline 100 MG CAP PO SCH ×2 (13:11→21:30)
[2021-03-21] MEDS: Cholecalciferol 1,000 UNITS (25 MCG) TAB PO SCH ×2 (13:11→21:30)
[2021-03-21] MEDS: Amlodipine 5 MG TAB PO SCH ×2 (13:11→21:30)
[2021-03-21] MEDS: Aspirin 81 mg Enteric Coated Tablet PO SCH (13:11)
[2021-03-21 21:04] LABS: Bilirubin Neg (Negative); Blood, Urine 250 (Negative); Clarity Mucous (Clear); Glucose, Urine (Dipstick) 250 mg/dL (Negative); Ketone, Urine Negative (Negative); Leukocyte 500 (Negative); Nitrite Negative (Negative); Protein, Urine (Dipstick) 500 mg/dl (Neg-Trace); Specific Gravity, Urine 1.015 (1.002-1.036); Urobilinogen Normal mg/dL (Less than 2)
[2021-03-21] MEDS: Atorvastatin Calcium 40 MG TAB PO SCH (21:29)
[2021-03-21 21:31] LABS: RBC/HPF Greater than 50 HPF (0-3); WBC/HPF Greater Than 50 HPF (0-3)
[2021-03-21 21:32] LABS: Bacteria/HPF 3+ HPF (None Seen); Squamous Epithelial 0-3 HPF (0-3); Yeast-Hyphae 3+ HPF (None Seen)
[2021-03-21 21:33] LABS: Mucous/LPF 1+ LPF (<2+); White Blood Cell Cast 0-3 LPF (None Seen); Yeast-Budding 2+ HPF (None Seen)
[2021-03-22] MEDS: Sodium Chloride 0.9% 1,000 ML IV SCH ×2 (04:26→23:40)
[2021-03-22 05:20] LABS: Anion Gap 17 mmol/L (10-20); BUN (Urea Nitrogen) 89 mg/dL (9.8-20.1); Calc. Creatinine Clearance 9 mL/min (70-130); Carbon Dioxide 19 mmol/L (23-31); Chloride 108 mmol/L (98-107); Glucose 276 mg/dL (80-115); Potassium 4.5 mmol/L (3.5-5.1); Sodium 139 mmol/L (136-145)
[2021-03-22] MEDS: Pregabalin 75 MG CAP PO SCH ×3 (05:44→22:50)
[2021-03-22 05:46] LABS: #Basophils 0.1 10x3/uL (0.0-0.2); #Eosinphils 0.2 10x3/uL (0.0-0.5); #Neutrophils 9.5 10x3/uL (1.5-8.4); %Basophils 0.6 % (0.0-2.0); %Eosinophils 1.4 % (0.0-6.0); %Lymphocytes 12.1 % (18.0-47.0); %Monocytes 8.1 % (0.0-10.0); %Neutrophils 75.3 % (40.0-75.0); Hemoglobin 7.3 g/dL (12.0-15.5); Mean Corpuscular HGB CONC 32.2 g/dL (32.0-36.0); Mean Corpuscular Volume 93.4 fl (81.6-98.3); Mean Platelet Volume 11.5 fl (7.4-10.4); Platelet Count 132 10x3/uL (150-450); RBC Distribution Width 14.7 % (11.5-14.5); Red Blood Cell (RBC) Count 2.43 10x6/uL (3.90-5.03); White Blood Cell (WBC) Count 12.7 10x3/uL (3.5-10.5)
[2021-03-22] MEDS: HumaLOG 300 UNITS/3 ML VIAL SC PRN ×3 (06:33→23:08)
[2021-03-22] MEDS: Amlodipine 5 MG TAB PO SCH ×2 (10:26→22:48)
[2021-03-22] MEDS: Aspirin 81 mg Enteric Coated Tablet PO SCH (10:26)
[2021-03-22] MEDS: Metoprolol Tartrate 25 MG TAB PO SCH ×2 (10:28→22:49)
[2021-03-22] MEDS: Lantus 1000 UNITS/10 ML VIAL SC SCH ×2 (10:28→23:08)
[2021-03-22] MEDS: Cholecalciferol 1,000 UNITS (25 MCG) TAB PO SCH ×2 (10:28→22:49)
[2021-03-22] MEDS: Icosapent Ethyl 1 GM CAPSULE PO SCH ×2 (10:28→18:50)
[2021-03-22] MEDS: Doxycycline 100 MG CAP PO SCH ×2 (10:28→22:50)
[2021-03-22] MEDS: Atorvastatin Calcium 40 MG TAB PO SCH (22:50)
[2021-03-23 05:16] LABS: #Basophils 0.1 10x3/uL (0.0-0.2); #Eosinphils 0.3 10x3/uL (0.0-0.5); #Monocytes 1.1 10x3/uL (0.0-1.1); #Neutrophils 10.9 10x3/uL (1.5-8.4); %Basophils 0.6 % (0.0-2.0); %Eosinophils 1.8 % (0.0-6.0); %Lymphocytes 13.1 % (18.0-47.0); %Monocytes 7.5 % (0.0-10.0); %Neutrophils 74.2 % (40.0-75.0); Hemoglobin 9.2 g/dL (12.0-15.5); Mean Corpuscular Hemoglobin 29.9 pg (27.0-33.0); Mean Corpuscular Volume 90.6 fl (81.6-98.3); Mean Platelet Volume 11.5 fl (7.4-10.4); Platelet Count 133 10x3/uL (150-450); RBC Distribution Width 14.7 % (11.5-14.5); Red Blood Cell (RBC) Count 3.08 10x6/uL (3.90-5.03); White Blood Cell (WBC) Count 14.7 10x3/uL (3.5-10.5)
[2021-03-23] MEDS: HumaLOG 300 UNITS/3 ML VIAL SC PRN ×4 (07:23→22:51)
[2021-03-23] MEDS: Pregabalin 75 MG CAP PO SCH ×2 (07:26→22:44)
[2021-03-23 08:56] LABS: Anion Gap 16 mmol/L (10-20); BUN (Urea Nitrogen) 105 mg/dL (9.8-20.1); Calc. Creatinine Clearance 8 mL/min (70-130); Calcium 8.4 mg/dL (7.8-10.44); Carbon Dioxide 18 mmol/L (23-31); Chloride 106 mmol/L (98-107); Glucose 313 mg/dL (80-115); Sodium 135 mmol/L (136-145)
[2021-03-23] MEDS: Metoprolol Tartrate 25 MG TAB PO SCH ×2 (10:48→22:45)
[2021-03-23] MEDS: Doxycycline 100 MG CAP PO SCH (10:48)
[2021-03-23] MEDS: Cholecalciferol 1,000 UNITS (25 MCG) TAB PO SCH ×2 (10:49→22:44)
[2021-03-23] MEDS: Aspirin 81 mg Enteric Coated Tablet PO SCH (10:49)
[2021-03-23] MEDS: Amlodipine 5 MG TAB PO SCH ×2 (10:49→22:44)
[2021-03-23] MEDS: Icosapent Ethyl 1 GM CAPSULE PO SCH ×2 (10:49→19:00)
[2021-03-23 13:37] LABS: Fungus Stain Final report (.)
[2021-03-23] MEDS ORDERED: Vancomycin 25 MG/ML Oral SOLN PO SCH (14:00)
[2021-03-23] MEDS: Vancomycin 25 MG/ML Oral SOLN PO SCH ×2 (15:01→22:44)
[2021-03-23] MEDS: Lantus 1000 UNITS/10 ML VIAL SC SCH ×2 (15:11→22:45)
[2021-03-23 20:24] LABS: Potassium 5.2 mmol/L (3.5-5.1)
[2021-03-23] MEDS: Sodium Chloride 0.9% 1,000 ML IV SCH (20:33)
[2021-03-23] MEDS: Atorvastatin Calcium 40 MG TAB PO SCH (22:46)
[2021-03-24] MEDS: Vancomycin 25 MG/ML Oral SOLN PO SCH ×4 (01:05→20:47)
[2021-03-24 05:41] LABS: Anion Gap 17 mmol/L (10-20); BUN (Urea Nitrogen) 116 mg/dL (9.8-20.1); Calc. Creatinine Clearance 7 mL/min (70-130); Calcium 8.1 mg/dL (7.8-10.44); Carbon Dioxide 16 mmol/L (23-31); Chloride 109 mmol/L (98-107); Glucose 305 mg/dL (80-115); Sodium 137 mmol/L (136-145)
[2021-03-24 05:55] LABS: #Basophils 0.1 10x3/uL (0.0-0.2); #Eosinphils 0.3 10x3/uL (0.0-0.5); #Monocytes 0.9 10x3/uL (0.0-1.1); #Neutrophils 8.4 10x3/uL (1.5-8.4); %Basophils 0.5 % (0.0-2.0); %Eosinophils 2.7 % (0.0-6.0); %Lymphocytes 14.9 % (18.0-47.0); %Monocytes 7.3 % (0.0-10.0); %Neutrophils 72.1 % (40.0-75.0); Hemoglobin 8.6 g/dL (12.0-15.5); Mean Corpuscular HGB CONC 33.9 g/dL (32.0-36.0); Mean Corpuscular Hemoglobin 30.3 pg (27.0-33.0); Mean Corpuscular Volume 89.4 fl (81.6-98.3); Mean Platelet Volume 11.6 fl (7.4-10.4); Platelet Count 120 10x3/uL (150-450); RBC Distribution Width 14.8 % (11.5-14.5); Red Blood Cell (RBC) Count 2.84 10x6/uL (3.90-5.03); White Blood Cell (WBC) Count 11.7 10x3/uL (3.5-10.5)
[2021-03-24] MEDS: HumaLOG 300 UNITS/3 ML VIAL SC PRN ×4 (05:59→20:55)
[2021-03-24] MEDS: Pregabalin 75 MG CAP PO SCH ×2 (08:26→20:45)
[2021-03-24] MEDS: Cholecalciferol 1,000 UNITS (25 MCG) TAB PO SCH ×2 (08:26→20:45)
[2021-03-24] MEDS: Metoprolol Tartrate 25 MG TAB PO SCH ×2 (08:26→20:47)
[2021-03-24] MEDS: Amlodipine 5 MG TAB PO SCH ×2 (08:27→20:48)
[2021-03-24] MEDS: Aspirin 81 mg Enteric Coated Tablet PO SCH (08:27)
[2021-03-24] MEDS: Icosapent Ethyl 1 GM CAPSULE PO SCH ×2 (08:27→17:37)
[2021-03-24] MEDS: Lantus 1000 UNITS/10 ML VIAL SC SCH ×2 (08:53→21:19)
[2021-03-24] MEDS: Sodium Chloride 0.9% 1,000 ML IV SCH ×2 (13:47→17:38)
[2021-03-24 18:13] LABS: Bilirubin Neg (Negative); Blood, Urine 250 (Negative); Clarity Cloudy (Clear); Glucose, Urine (Dipstick) 250 mg/dL (Negative); Ketone, Urine Negative (Negative); Leukocyte 500 (Negative); Nitrite Negative (Negative); Protein, Urine (Dipstick) 500 mg/dl (Neg-Trace); Urobilinogen Normal mg/dL (Less than 2)
[2021-03-24 18:24] LABS: RBC/HPF 21-50 HPF (0-3); Squamous Epithelial 0-3 HPF (0-3); WBC/HPF Greater Than 50 HPF (0-3)
[2021-03-24 18:25] LABS: Bacteria/HPF 2+ HPF (None Seen); Yeast-Budding 1+ HPF (None Seen); Yeast-Hyphae Rare HPF (None Seen)
[2021-03-24] MEDS: Albumin 25% 25 GM/100 ML BOT IVPB SCH (18:25)
[2021-03-24] MEDS: Atorvastatin Calcium 40 MG TAB PO SCH (20:47)
[2021-03-25] MEDS: Albumin 25% 25 GM/100 ML BOT IVPB SCH ×3 (00:03→13:19)
[2021-03-25] MEDS: Vancomycin 25 MG/ML Oral SOLN PO SCH ×4 (01:54→23:36)
[2021-03-25] MEDS: Sodium Chloride 0.9% 1,000 ML IV SCH ×2 (03:57→19:01)
[2021-03-25 04:14] LABS: #Basophils 0.1 10x3/uL (0.0-0.2); #Eosinphils 0.3 10x3/uL (0.0-0.5); #Monocytes 0.7 10x3/uL (0.0-1.1); #Neutrophils 7.9 10x3/uL (1.5-8.4); %Basophils 0.6 % (0.0-2.0); %Eosinophils 3.3 % (0.0-6.0); %Lymphocytes 11.7 % (18.0-47.0); %Monocytes 6.7 % (0.0-10.0); %Neutrophils 75.9 % (40.0-75.0); Mean Corpuscular HGB CONC 33.2 g/dL (32.0-36.0); Mean Corpuscular Hemoglobin 30.7 pg (27.0-33.0); Mean Corpuscular Volume 92.3 fl (81.6-98.3); Mean Platelet Volume 11.6 fl (7.4-10.4); Platelet Count 110 10x3/uL (150-450); Red Blood Cell (RBC) Count 2.61 10x6/uL (3.90-5.03); White Blood Cell (WBC) Count 10.4 10x3/uL (3.5-10.5)
[2021-03-25 04:30] LABS: Anion Gap 19 mmol/L (10-20); Calc. Creatinine Clearance 7 mL/min (70-130); Calcium 8.4 mg/dL (7.8-10.44); Carbon Dioxide 15 mmol/L (23-31); Chloride 108 mmol/L (98-107); Glucose 356 mg/dL (80-115); Potassium 5.8 mmol/L (3.5-5.1); Sodium 136 mmol/L (136-145)
[2021-03-25 04:40] LABS: BUN (Urea Nitrogen) 124 mg/dL (9.8-20.1)
[2021-03-25] MEDS: HumaLOG 300 UNITS/3 ML VIAL SC PRN ×3 (05:44→19:30)
[2021-03-25] MEDS: Amlodipine 5 MG TAB PO SCH (10:49)
[2021-03-25] MEDS: Icosapent Ethyl 1 GM CAPSULE PO SCH ×2 (10:49→19:01)
[2021-03-25] MEDS: Metoprolol Tartrate 25 MG TAB PO SCH ×2 (10:50→20:11)
[2021-03-25] MEDS: Fluconazole 100 MG TAB PO SCH (10:50)
[2021-03-25] MEDS: Pregabalin 75 MG CAP PO SCH ×2 (10:50→20:10)
[2021-03-25] MEDS: Lantus 1000 UNITS/10 ML VIAL SC SCH ×2 (10:50→22:28)
[2021-03-25] MEDS: Aspirin 81 mg Enteric Coated Tablet PO SCH (10:50)
[2021-03-25] MEDS: Cholecalciferol 1,000 UNITS (25 MCG) TAB PO SCH ×2 (11:24→20:10)
[2021-03-25] MEDS ORDERED: Dextrose 5% in Water 1,000 ML IV PRN (11:45)
[2021-03-25] MEDS ORDERED: Dextrose 50% Abboject 50 ML SYRINGE SLOW IVP PRN (11:45)
[2021-03-25 12:29] LABS: SARS-CoV-2 PCR by NAA Not Detected (NotDetected)
[2021-03-25 15:50] LABS: Hep B Surf Ag Non-Reactive S/CO (NonReactive)
[2021-03-25 15:51] LABS: HBSAg Index 0.17 S/CO (0-0.99)
[2021-03-25] MEDS ORDERED: Vancomycin 25 MG/ML Oral SOLN PO SCH (17:00)
[2021-03-25] MEDS: Atorvastatin Calcium 40 MG TAB PO SCH (20:10)
[2021-03-25] MEDS ORDERED: Furosemide 40 MG/4 ML VIAL SLOW IVP SCH (21:00)
[2021-03-26] MEDS: Vancomycin 25 MG/ML Oral SOLN PO SCH ×4 (04:56→23:33)
[2021-03-26 05:57] LABS: Hep C IgG Ab Non-Reactive (NonReactive); Hep C Index 0.08 S/CO (0-0.79)
[2021-03-26 06:00] LABS: Hep B Core Total Ab Non-Reactive (NonReactive)
[2021-03-26 06:01] LABS: HBSAB Concentration 102.74 mIU/mL; Hep B Core Total Index 0.09 S/CO (0-0.79); Hep B Surf AB Reactive (NonReactive)
[2021-03-26 06:13] LABS: Anion Gap 19 mmol/L (10-20); BUN (Urea Nitrogen) 106 mg/dL (9.8-20.1); Calc. Creatinine Clearance 8 mL/min (70-130); Calcium 8.9 mg/dL (7.8-10.44); Carbon Dioxide 17 mmol/L (23-31); Chloride 111 mmol/L (98-107); Glucose 93 mg/dL (80-115); Potassium 5.7 mmol/L (3.5-5.1); Sodium 141 mmol/L (136-145)
[2021-03-26 06:40] LABS: #Eosinphils 0.2 10x3/uL (0.0-0.5); #Monocytes 0.8 10x3/uL (0.0-1.1); #Neutrophils 13.4 10x3/uL (1.5-8.4); %Basophils 0.2 % (0.0-2.0); %Eosinophils 1.1 % (0.0-6.0); %Lymphocytes 9.2 % (18.0-47.0); %Monocytes 5.2 % (0.0-10.0); %Neutrophils 82.9 % (40.0-75.0); Hemoglobin 9.1 g/dL (12.0-15.5); Mean Corpuscular HGB CONC 33.5 g/dL (32.0-36.0); Mean Corpuscular Volume 89.8 fl (81.6-98.3); Mean Platelet Volume 12.2 fl (7.4-10.4); Platelet Count 85 10x3/uL (150-450); RBC Distribution Width 15.2 % (11.5-14.5); Red Blood Cell (RBC) Count 3.03 10x6/uL (3.90-5.03); White Blood Cell (WBC) Count 16.2 10x3/uL (3.5-10.5)
[2021-03-26] MEDS: Amlodipine 10 MG TAB PO SCH (08:44)
[2021-03-26] MEDS: Metoprolol Tartrate 25 MG TAB PO SCH ×2 (08:44→20:43)
[2021-03-26] MEDS: Cholecalciferol 1,000 UNITS (25 MCG) TAB PO SCH ×2 (08:57→20:42)
[2021-03-26] MEDS: Icosapent Ethyl 1 GM CAPSULE PO SCH ×2 (08:57→17:29)
[2021-03-26] MEDS: Aspirin 81 mg Enteric Coated Tablet PO SCH (08:57)
[2021-03-26] MEDS: Fluconazole 100 MG TAB PO SCH (08:58)
[2021-03-26] MEDS: Lantus 1000 UNITS/10 ML VIAL SC SCH ×2 (08:58→20:47)
[2021-03-26] MEDS: Pregabalin 75 MG CAP PO SCH ×2 (08:58→20:43)
[2021-03-26] MEDS ORDERED: Vancomycin 1 GM in Premix Bag 1 BAG IVPB SCH ×2 (17:30→17:45)
[2021-03-26] MEDS: HumaLOG 300 UNITS/3 ML VIAL SC PRN (17:30)
[2021-03-26] MEDS ORDERED: Vancomycin HCl 250 MG in Sodium Chloride 0.9% 100 ML IVPB SCH (17:45)
[2021-03-26] MEDS ORDERED: Vancomycin HCl 1 GM in Sodium Chloride 0.9% 250 ML 250 ML IVPB SCH (17:45)
[2021-03-26] MEDS ORDERED: Vancomycin HCl 500 MG in Sodium Chloride 0.9% 100 ML IVPB SCH (17:45)
[2021-03-26] MEDS ORDERED: Vancomycin Sliding Scale 1 EACH FS ONE (17:45)
[2021-03-26] MEDS ORDERED: HOLD VANCOMYCIN FOR LEVEL >20 FS SCH (17:45)
[2021-03-26] MEDS ORDERED: Vancomycin HCl 750 MG in Sodium Chloride 0.9% 250 ML 250 ML IVPB SCH (17:45)
[2021-03-26 18:08] LABS: Prothrombin Time 11.4 sec (9.5-12.1)
[2021-03-26] MEDS: Benzonatate 100 MG CAP PO PRN (18:36)
[2021-03-26] MEDS: Atorvastatin Calcium 40 MG TAB PO SCH (20:42)
[2021-03-26] MEDS ORDERED: Cefepime 1 GM in Sodium Chloride 0.9% 100 ML IVPB SCH (21:00)
[2021-03-27] MEDS: Vancomycin 25 MG/ML Oral SOLN PO SCH (04:12)
[2021-03-27 04:30] LABS: INR-International Normal Ratio 1.1; Prothrombin Time 11.7 sec (9.5-12.1)
[2021-03-27 04:31] LABS: #Eosinphils 0.1 10x3/uL (0.0-0.5); #Monocytes 0.8 10x3/uL (0.0-1.1); #Neutrophils 10.8 10x3/uL (1.5-8.4); %Basophils 0.3 % (0.0-2.0); %Eosinophils 0.4 % (0.0-6.0); %Monocytes 6.4 % (0.0-10.0); %Neutrophils 84.3 % (40.0-75.0); Hemoglobin 8.4 g/dL (12.0-15.5); Mean Corpuscular HGB CONC 32.9 g/dL (32.0-36.0); Mean Corpuscular Hemoglobin 30.2 pg (27.0-33.0); Mean Corpuscular Volume 91.7 fl (81.6-98.3); Mean Platelet Volume 12.3 fl (7.4-10.4); Platelet Count 36 10x3/uL (150-450); RBC Distribution Width 15.6 % (11.5-14.5); Red Blood Cell (RBC) Count 2.78 10x6/uL (3.90-5.03); White Blood Cell (WBC) Count 12.8 10x3/uL (3.5-10.5)
[2021-03-27 04:32] LABS: Vancomycin, Random 28.3 ug/mL (See Comment)
[2021-03-27 04:36] LABS: Anion Gap 19 mmol/L (10-20); BUN (Urea Nitrogen) 81 mg/dL (9.8-20.1); Calc. Creatinine Clearance 10 mL/min (70-130); Calcium 8.5 mg/dL (7.8-10.44); Carbon Dioxide 17 mmol/L (23-31); Chloride 109 mmol/L (98-107); Glucose 144 mg/dL (80-115); Potassium 5.3 mmol/L (3.5-5.1); Sodium 140 mmol/L (136-145)
[2021-03-27 05:38] LABS: Platelet Morphology Comment Appears Decreased
[2021-03-27] MEDS: Cholecalciferol 1,000 UNITS (25 MCG) TAB PO SCH ×2 (08:54→20:19)
[2021-03-27] MEDS: Icosapent Ethyl 1 GM CAPSULE PO SCH ×2 (08:54→16:21)
[2021-03-27] MEDS: Aspirin 81 mg Enteric Coated Tablet PO SCH (08:54)
[2021-03-27] MEDS: Amlodipine 10 MG TAB PO SCH (08:54)
[2021-03-27] MEDS: Fluconazole 100 MG TAB PO SCH (08:54)
[2021-03-27] MEDS: Metoprolol Tartrate 25 MG TAB PO SCH ×2 (08:55→20:19)
[2021-03-27] MEDS: Pregabalin 75 MG CAP PO SCH ×2 (08:55→20:19)
[2021-03-27] MEDS: Lantus 1000 UNITS/10 ML VIAL SC SCH ×2 (08:55→20:19)
[2021-03-27] MEDS ORDERED: Meropenem 500 MG in Sodium Chloride 0.9% 100 ML IVPB SCH (09:00)
[2021-03-27 09:25] LABS: Actual Bicarbonate (HCO3v) 21 mEq/L (22-28); Base Excess -4.5 mEq/L (-2.0 to +3.0); Calcium, Ionized (venous) 1.14 mmol/L (1.16-1.32); Chloride (VBG) 104 mmol/L (98-106); Hemoglobin (Hb) 10.4 g/dL (11.7-16.1); Potassium (VBG) 5.03 mmol/L (3.70-5.30); Puncture Site Other Site; Sodium 139.2 mmol/L (133-146); pH (venous) 7.34 (7.32-7.43)
[2021-03-27 09:26] LABS: SARS-CoV-2 IgG Spike Ab Interp Reactive (NonReactive); SARS-CoV-2 IgG Spike Conc/Indx 83.9 AU/mL (0.00-50.0)
[2021-03-27] MEDS ORDERED: Cefepime 1 GM in Sodium Chloride 0.9% 100 ML IVPB SCH (15:00)
[2021-03-27] MEDS: Meropenem 500 MG in Sodium Chloride 0.9% 100 ML IVPB SCH (16:20)
[2021-03-27] MEDS ORDERED: Warfarin Sodium 5 MG TAB PO SCH (17:00)
[2021-03-27] MEDS: HumaLOG 300 UNITS/3 ML VIAL SC PRN (18:10)
[2021-03-27] MEDS: Ventolin HFA Inhaler 60 PUFF INHALER INH SCH ×2 (19:33→23:59)
[2021-03-27] MEDS: Atorvastatin Calcium 40 MG TAB PO SCH (20:19)
[2021-03-27] MEDS: Fidaxomicin 200 MG TAB PO SCH (20:19)
[2021-03-27] MEDS ORDERED: Heparin 5,000 UNITS/ML VIAL SC SCH (21:00)
[2021-03-27] MEDS ORDERED: Dexamethasone 4 mg/ml Vial SLOW IVP SCH (21:30)
[2021-03-28] MEDS: hydrALAZINE 20 MG/ML VIAL SLOW IVP PRN (00:57)
[2021-03-28 05:12] LABS: INR-International Normal Ratio 1.1; PTT 32.7 sec (22.0-33.0); Prothrombin Time 12.4 sec (9.5-12.1)
[2021-03-28 05:13] LABS: Hemoglobin 9.7 g/dL (12.0-15.5); Mean Corpuscular HGB CONC 33.4 g/dL (32.0-36.0); Mean Corpuscular Volume 89.8 fl (81.6-98.3); Platelet Count 29 10x3/uL (150-450); RBC Distribution Width 15.4 % (11.5-14.5); Red Blood Cell (RBC) Count 3.23 10x6/uL (3.90-5.03)
[2021-03-28 05:14] LABS: Anion Gap 16 mmol/L (10-20); BUN (Urea Nitrogen) 49 mg/dL (9.8-20.1); Calc. Creatinine Clearance 14 mL/min (70-130); Calcium 8.8 mg/dL (7.8-10.44); Carbon Dioxide 24 mmol/L (23-31); Chloride 104 mmol/L (98-107); Glucose 249 mg/dL (80-115); Potassium 4.4 mmol/L (3.5-5.1); Sodium 140 mmol/L (136-145)
[2021-03-28 05:24] LABS: Platelet Morphology Comment Appears Decreased
[2021-03-28 05:27] LABS: Band 3 % (5-11); Lymphocytes 1 % (21-51); Metamyelocyte 1 % (0-0); Monocytes 2 % (0-10); Reactive Lymphocytes 2 % (0-10)
[2021-03-28 05:31] LABS: Anisocytosis SLIGHT = 6-15 cells (100X) (0-5/hpf); MDiff Complete? YES; Neutrophil 91 % (42-75)
[2021-03-28 05:32] LABS: Ovalocytes SLIGHT = 2-5 cells (100X) (0-1/hpf); Schistocytes SLIGHT = 2-5 cells (100X) (0-1/hpf); Spherocytes SLIGHT = 1-5 cells (100X) (None Seen)
[2021-03-28] MEDS: HumaLOG 300 UNITS/3 ML VIAL SC PRN ×5 (06:38→21:13)
[2021-03-28] MEDS: Ventolin HFA Inhaler 60 PUFF INHALER INH SCH ×3 (07:35→20:17)
[2021-03-28] MEDS: Lantus 1000 UNITS/10 ML VIAL SC SCH ×2 (10:04→21:12)
[2021-03-28] MEDS: Fluconazole 100 MG TAB PO SCH (10:08)
[2021-03-28] MEDS: Fidaxomicin 200 MG TAB PO SCH ×2 (10:08→21:42)
[2021-03-28] MEDS: Pregabalin 75 MG CAP PO SCH ×2 (10:08→21:10)
[2021-03-28] MEDS: Icosapent Ethyl 1 GM CAPSULE PO SCH ×2 (10:08→18:07)
[2021-03-28] MEDS: Metoprolol Tartrate 25 MG TAB PO SCH ×2 (10:09→21:11)
[2021-03-28] MEDS: Amlodipine 10 MG TAB PO SCH (10:09)
[2021-03-28] MEDS: Aspirin 81 mg Enteric Coated Tablet PO SCH (10:09)
[2021-03-28] MEDS: Cholecalciferol 1,000 UNITS (25 MCG) TAB PO SCH ×2 (10:09→21:11)
[2021-03-28 12:16] LABS: SARS-CoV-2 PCR by NAA Not Detected (NotDetected)
[2021-03-28] MEDS: Meropenem 500 MG in Sodium Chloride 0.9% 100 ML IVPB SCH (13:55)
[2021-03-28 14:24] LABS: ALT (SGPT) 26 U/L (8-55); AST (SGOT) 20 U/L (5-34); Albumin 3.3 g/dL (3.4-4.8); Alkaline Phosphatase 103 U/L (40-110); Bilirubin, Direct 0.2 mg/dL (0.1-0.3); Bilirubin, Total 0.4 mg/dL (0.2-1.2); Protein, Total 6.1 g/dL (5.8-8.1)
[2021-03-28] MEDS: Atorvastatin Calcium 40 MG TAB PO SCH (21:11)
[2021-03-29] MEDS: Ventolin HFA Inhaler 60 PUFF INHALER INH SCH ×4 (02:18→19:10)
[2021-03-29 04:10] LABS: Prothrombin Time 11.3 sec (9.5-12.1)
[2021-03-29 04:15] LABS: #Neutrophils 17.2 10x3/uL (1.5-8.4); %Basophils 0.1 % (0.0-2.0); %Lymphocytes 5.4 % (18.0-47.0); %Monocytes 5.2 % (0.0-10.0); %Neutrophils 88.5 % (40.0-75.0); Hemoglobin 9.1 g/dL (12.0-15.5); Mean Corpuscular HGB CONC 32.7 g/dL (32.0-36.0); Mean Corpuscular Hemoglobin 29.7 pg (27.0-33.0); Mean Corpuscular Volume 90.8 fl (81.6-98.3); Platelet Count 38 10x3/uL (150-450); RBC Distribution Width 15.3 % (11.5-14.5); Red Blood Cell (RBC) Count 3.06 10x6/uL (3.90-5.03); White Blood Cell (WBC) Count 19.5 10x3/uL (3.5-10.5)
[2021-03-29] MEDS: HumaLOG 300 UNITS/3 ML VIAL SC PRN (06:48)
[2021-03-29] MEDS: Amlodipine 10 MG TAB PO SCH (07:57)
[2021-03-29] MEDS: Fluconazole 100 MG TAB PO SCH (07:57)
[2021-03-29] MEDS: Metoprolol Tartrate 25 MG TAB PO SCH ×2 (07:58→21:35)
[2021-03-29] MEDS: Cholecalciferol 1,000 UNITS (25 MCG) TAB PO SCH ×2 (07:58→21:35)
[2021-03-29] MEDS: Fidaxomicin 200 MG TAB PO SCH ×2 (07:59→21:36)
[2021-03-29] MEDS: Pregabalin 75 MG CAP PO SCH ×2 (07:59→21:35)
[2021-03-29] MEDS: Aspirin 81 mg Enteric Coated Tablet PO SCH (07:59)
[2021-03-29] MEDS: Lantus 1000 UNITS/10 ML VIAL SC SCH (08:00)
[2021-03-29] MEDS: Icosapent Ethyl 1 GM CAPSULE PO SCH ×2 (08:00→18:04)
[2021-03-29] MEDS: Meropenem 500 MG in Sodium Chloride 0.9% 100 ML IVPB SCH (14:44)
[2021-03-29 17:40] LABS: SARS-CoV-2 PCR NAA for Saliva Not Detected (NotDetected)
[2021-03-29] MEDS: Atorvastatin Calcium 40 MG TAB PO SCH (21:35)
[2021-03-30] MEDS: Ventolin HFA Inhaler 60 PUFF INHALER INH SCH ×4 (00:45→13:50)
[2021-03-30] MEDS: Lantus 1000 UNITS/10 ML VIAL SC SCH ×4 (01:06→20:05)
[2021-03-30 04:31] LABS: #Eosinphils 0.3 10x3/uL (0.0-0.5); #Monocytes 1.3 10x3/uL (0.0-1.1); #Neutrophils 15.7 10x3/uL (1.5-8.4); %Basophils 0.2 % (0.0-2.0); %Eosinophils 1.6 % (0.0-6.0); %Lymphocytes 7.8 % (18.0-47.0); %Monocytes 6.7 % (0.0-10.0); %Neutrophils 83.1 % (40.0-75.0); Hemoglobin 9.6 g/dL (12.0-15.5); Mean Corpuscular HGB CONC 33.6 g/dL (32.0-36.0); Mean Corpuscular Hemoglobin 30.5 pg (27.0-33.0); Mean Corpuscular Volume 90.8 fl (81.6-98.3); RBC Distribution Width 15.3 % (11.5-14.5); Red Blood Cell (RBC) Count 3.15 10x6/uL (3.90-5.03); White Blood Cell (WBC) Count 18.8 10x3/uL (3.5-10.5)
[2021-03-30 04:32] LABS: Platelet Count 35 10x3/uL (150-450)
[2021-03-30 04:39] LABS: ALT (SGPT) 39 U/L (8-55); AST (SGOT) 43 U/L (5-34); Albumin 3.4 g/dL (3.4-4.8); Alkaline Phosphatase 119 U/L (40-110); Anion Gap 15 mmol/L (10-20); BUN (Urea Nitrogen) 49 mg/dL (9.8-20.1); Bilirubin, Total 0.4 mg/dL (0.2-1.2); Calc. Creatinine Clearance 14 mL/min (70-130); Calcium 8.8 mg/dL (7.8-10.44); Carbon Dioxide 27 mmol/L (23-31); Chloride 100 mmol/L (98-107); Globulin 2.8 g/dL (2.4-3.5); Glucose 109 mg/dL (80-115); Magnesium 1.7 mg/dL (1.6-2.6); Phosphorus 4.7 mg/dL (2.3-4.7); Protein, Total 6.2 g/dL (5.8-8.1); Sodium 138 mmol/L (136-145)
[2021-03-30 05:57] LABS: Actual Bicarbonate (HCO3a) 25.9 mEq/L (22-28); Base Excess (BEa) 0.4 mEq/L (-2.0 to +3.0); CO2 Tension 46.2 mmHg (35.0-45.0); Calcium, Ionized (arterial) 1.12 mmol/L (1.12-1.30); Carboxyhemoglobin (COHb) 0.3 gm% (0.0-3.0); Hemoglobin (Hb) 8.3 g/dL (12.0-16.0); O2 Tension (PaO2), arterial 55.9 mmHg (> 80.0); Potassium - ABG Lab 3.8 mmol/L (3.70-5.30); Puncture Site RRA; pH, Arterial 7.37 (7.35-7.45)
[2021-03-30] MEDS: Icosapent Ethyl 1 GM CAPSULE PO SCH ×2 (10:26→16:43)
[2021-03-30] MEDS: Fidaxomicin 200 MG TAB PO SCH ×2 (10:27→20:03)
[2021-03-30] MEDS: Aspirin 81 mg Enteric Coated Tablet PO SCH (11:16)
[2021-03-30] MEDS: Amlodipine 10 MG TAB PO SCH (11:16)
[2021-03-30] MEDS: Dexamethasone 4 mg/ml Vial SLOW IVP SCH (11:18)
[2021-03-30] MEDS: Cholecalciferol 1,000 UNITS (25 MCG) TAB PO SCH ×2 (11:18→20:03)
[2021-03-30] MEDS: Metoprolol Tartrate 25 MG TAB PO SCH ×2 (11:18→20:03)
[2021-03-30] MEDS: Fluconazole 100 MG TAB PO SCH (11:25)
[2021-03-30] MEDS: Pregabalin 75 MG CAP PO SCH ×2 (11:25→20:03)
[2021-03-30] MEDS: Meropenem 500 MG in Sodium Chloride 0.9% 100 ML IVPB SCH (14:37)
[2021-03-30] MEDS: Benzonatate 100 MG CAP PO PRN (16:43)
[2021-03-30] MEDS: Atorvastatin Calcium 40 MG TAB PO SCH (20:03)
[2021-03-30] MEDS: HumaLOG 300 UNITS/3 ML VIAL SC PRN (20:04)
[2021-03-31] MEDS: Ventolin HFA Inhaler 60 PUFF INHALER INH SCH ×4 (00:38→19:25)
[2021-03-31 04:10] LABS: #Monocytes 0.4 10x3/uL (0.0-1.1); #Neutrophils 8.8 10x3/uL (1.5-8.4); %Lymphocytes 5.3 % (18.0-47.0); %Monocytes 4.3 % (0.0-10.0); %Neutrophils 89.7 % (40.0-75.0); Hemoglobin 8.4 g/dL (12.0-15.5); Mean Corpuscular HGB CONC 32.6 g/dL (32.0-36.0); Mean Corpuscular Hemoglobin 29.7 pg (27.0-33.0); Mean Corpuscular Volume 91.2 fl (81.6-98.3); Platelet Count 31 10x3/uL (150-450); RBC Distribution Width 14.6 % (11.5-14.5); Red Blood Cell (RBC) Count 2.83 10x6/uL (3.90-5.03); White Blood Cell (WBC) Count 9.8 10x3/uL (3.5-10.5)
[2021-03-31 04:29] LABS: ALT (SGPT) 34 U/L (8-55); AST (SGOT) 34 U/L (5-34); Albumin 3.2 g/dL (3.4-4.8); Alkaline Phosphatase 185 U/L (40-110); Anion Gap 20 mmol/L (10-20); BUN (Urea Nitrogen) 85 mg/dL (9.8-20.1); Bilirubin, Total 0.3 mg/dL (0.2-1.2); Calc. Creatinine Clearance 10 mL/min (70-130); Calcium 8.5 mg/dL (7.8-10.44); Carbon Dioxide 23 mmol/L (23-31); Chloride 96 mmol/L (98-107); Globulin 2.5 g/dL (2.4-3.5); Glucose 461 mg/dL (80-115); Magnesium 1.8 mg/dL (1.6-2.6); Phosphorus 6.3 mg/dL (2.3-4.7); Potassium 4.6 mmol/L (3.5-5.1); Protein, Total 5.7 g/dL (5.8-8.1); Sodium 134 mmol/L (136-145)
[2021-03-31] MEDS: HumaLOG 300 UNITS/3 ML VIAL SC PRN ×4 (04:56→21:06)
[2021-03-31] MEDS ORDERED: Pantoprazole 40 MG VIAL IVP SCH (09:00)
[2021-03-31] MEDS: Dexamethasone 4 mg/ml Vial SLOW IVP SCH (10:10)
[2021-03-31] MEDS: Lantus 1000 UNITS/10 ML VIAL SC SCH (10:10)
[2021-03-31] MEDS: Icosapent Ethyl 1 GM CAPSULE PO SCH ×2 (10:10→16:04)
[2021-03-31] MEDS: Fidaxomicin 200 MG TAB PO SCH ×2 (10:11→20:47)
[2021-03-31] MEDS: Fluconazole 100 MG TAB PO SCH (10:11)
[2021-03-31] MEDS: Pregabalin 75 MG CAP PO SCH ×2 (10:11→20:46)
[2021-03-31] MEDS: Cholecalciferol 1,000 UNITS (25 MCG) TAB PO SCH ×2 (10:11→20:47)
[2021-03-31] MEDS: Aspirin 81 mg Enteric Coated Tablet PO SCH (10:11)
[2021-03-31] MEDS: Metoprolol Tartrate 25 MG TAB PO SCH ×2 (12:10→20:47)
[2021-03-31] MEDS: Amlodipine 10 MG TAB PO SCH (12:10)
[2021-03-31] MEDS: Meropenem 500 MG in Sodium Chloride 0.9% 100 ML IVPB SCH (15:59)
[2021-03-31] MEDS: Atorvastatin Calcium 40 MG TAB PO SCH (20:45)
[2021-03-31] MEDS: Famotidine 20 MG TAB PO SCH (20:47)
[2021-03-31] MEDS: Benzonatate 100 MG CAP PO PRN (20:47)
[2021-03-31] MEDS ORDERED: Lantus 1000 UNITS/10 ML VIAL SC SCH (21:00)
[2021-04-01] MEDS: Ventolin HFA Inhaler 60 PUFF INHALER INH SCH ×4 (01:01→20:08)
[2021-04-01] MEDS: Benzonatate 100 MG CAP PO PRN ×2 (04:24→16:53)
[2021-04-01 04:29] LABS: #Monocytes 0.8 10x3/uL (0.0-1.1); #Neutrophils 10.8 10x3/uL (1.5-8.4); %Basophils 0.1 % (0.0-2.0); %Lymphocytes 5.5 % (18.0-47.0); %Monocytes 6.4 % (0.0-10.0); %Neutrophils 87.3 % (40.0-75.0); Hemoglobin 7.6 g/dL (12.0-15.5); Mean Corpuscular HGB CONC 33.3 g/dL (32.0-36.0); Mean Corpuscular Volume 90.1 fl (81.6-98.3); Mean Platelet Volume 14.9 fl (7.4-10.4); Platelet Count 44 10x3/uL (150-450); RBC Distribution Width 14.6 % (11.5-14.5); Red Blood Cell (RBC) Count 2.53 10x6/uL (3.90-5.03); White Blood Cell (WBC) Count 12.3 10x3/uL (3.5-10.5)
[2021-04-01 04:46] LABS: ALT (SGPT) 41 U/L (8-55); AST (SGOT) 45 U/L (5-34); Albumin 3.3 g/dL (3.4-4.8); Alkaline Phosphatase 211 U/L (40-110); Anion Gap 19 mmol/L (10-20); BUN (Urea Nitrogen) 67 mg/dL (9.8-20.1); Bilirubin, Total 0.3 mg/dL (0.2-1.2); Calc. Creatinine Clearance 15 mL/min (70-130); Calcium 8.5 mg/dL (7.8-10.44); Carbon Dioxide 22 mmol/L (23-31); Chloride 100 mmol/L (98-107); Globulin 2.5 g/dL (2.4-3.5); Glucose 426 mg/dL (80-115); Magnesium 1.9 mg/dL (1.6-2.6); Phosphorus 3.8 mg/dL (2.3-4.7); Protein, Total 5.8 g/dL (5.8-8.1); Sodium 137 mmol/L (136-145)
[2021-04-01] MEDS: HumaLOG 300 UNITS/3 ML VIAL SC PRN ×5 (05:40→21:40)
[2021-04-01] MEDS: Dexamethasone 4 mg/ml Vial SLOW IVP SCH (08:36)
[2021-04-01] MEDS: Pregabalin 75 MG CAP PO SCH (08:41)
[2021-04-01] MEDS: Metoprolol Tartrate 25 MG TAB PO SCH ×2 (08:41→21:39)
[2021-04-01] MEDS: Amlodipine 10 MG TAB PO SCH (08:42)
[2021-04-01] MEDS: Cholecalciferol 1,000 UNITS (25 MCG) TAB PO SCH ×2 (08:43→21:39)
[2021-04-01] MEDS: Aspirin 81 mg Enteric Coated Tablet PO SCH (08:43)
[2021-04-01] MEDS: Fluconazole 100 MG TAB PO SCH (08:43)
[2021-04-01] MEDS: Icosapent Ethyl 1 GM CAPSULE PO SCH ×2 (08:45→16:13)
[2021-04-01] MEDS: Fidaxomicin 200 MG TAB PO SCH ×2 (08:45→21:39)
[2021-04-01] MEDS ORDERED: Lantus 1000 UNITS/10 ML VIAL SC SCH (09:00)
[2021-04-01] MEDS: Meropenem 500 MG in Sodium Chloride 0.9% 100 ML IVPB SCH (16:14)
[2021-04-01 20:52] LABS: SARS-CoV-2 PCR by NAA Not Detected (NotDetected)
[2021-04-01] MEDS: Atorvastatin Calcium 40 MG TAB PO SCH (21:39)
[2021-04-01] MEDS: Famotidine 20 MG TAB PO SCH (21:40)
[2021-04-01] MEDS: Lantus 1000 UNITS/10 ML VIAL SC SCH (21:41)
[2021-04-02] MEDS: Ventolin HFA Inhaler 60 PUFF INHALER INH SCH ×4 (01:30→19:35)
[2021-04-02 04:20] LABS: #Monocytes 0.8 10x3/uL (0.0-1.1); %Basophils 0.1 % (0.0-2.0); %Lymphocytes 5.5 % (18.0-47.0); %Monocytes 6.3 % (0.0-10.0); %Neutrophils 86.1 % (40.0-75.0); Hemoglobin 7.4 g/dL (12.0-15.5); Mean Corpuscular Hemoglobin 29.6 pg (27.0-33.0); Mean Corpuscular Volume 89.6 fl (81.6-98.3); Mean Platelet Volume 13.8 fl (7.4-10.4); Platelet Count 56 10x3/uL (150-450); RBC Distribution Width 14.4 % (11.5-14.5); White Blood Cell (WBC) Count 12.8 10x3/uL (3.5-10.5)
[2021-04-02 04:39] LABS: ALT (SGPT) 55 U/L (8-55); AST (SGOT) 54 U/L (5-34); Albumin 3.3 g/dL (3.4-4.8); Alkaline Phosphatase 226 U/L (40-110); Anion Gap 21 mmol/L (10-20); BUN (Urea Nitrogen) 120 mg/dL (9.8-20.1); Bilirubin, Total 0.3 mg/dL (0.2-1.2); Calc. Creatinine Clearance 11 mL/min (70-130); Calcium 8.6 mg/dL (7.8-10.44); Carbon Dioxide 21 mmol/L (23-31); Chloride 97 mmol/L (98-107); Globulin 2.4 g/dL (2.4-3.5); Glucose 452 mg/dL (80-115); Magnesium 1.9 mg/dL (1.6-2.6); Phosphorus 5.3 mg/dL (2.3-4.7); Potassium 4.2 mmol/L (3.5-5.1); Protein, Total 5.7 g/dL (5.8-8.1); Sodium 135 mmol/L (136-145)
[2021-04-02 05:25] LABS: Hypochromia SLIGHT = 6-15 cells (100X) (0-5/hpf)
[2021-04-02 05:26] LABS: Elliptocytes SLIGHT = 2-5 cells (100X) (0-1/hpf); Large Platelets SLIGHT; Platelet Morphology Comment Appears Decreased; Tear Drops SLIGHT = 2-5 cells (100X) (0-1/hpf)
[2021-04-02] MEDS: Benzonatate 100 MG CAP PO PRN (06:07)
[2021-04-02] MEDS ORDERED: Dextrose 5% in Water 1,000 ML IV PRN ×2 (06:21→06:23)
[2021-04-02] MEDS ORDERED: Dextrose 50% Abboject 50 ML SYRINGE SLOW IVP PRN ×2 (06:21→06:23)
[2021-04-02] MEDS ORDERED: Insulin Regular 300 UNITS/3 ML VIAL SC SCH ×4 (07:30→21:00)
[2021-04-02] MEDS: Metoprolol Tartrate 25 MG TAB PO SCH ×2 (08:00→21:54)
[2021-04-02] MEDS: Amlodipine 10 MG TAB PO SCH (08:00)
[2021-04-02] MEDS: Icosapent Ethyl 1 GM CAPSULE PO SCH ×2 (08:56→16:01)
[2021-04-02] MEDS: Fluconazole 100 MG TAB PO SCH (08:56)
[2021-04-02] MEDS: Fidaxomicin 200 MG TAB PO SCH ×2 (08:57→22:49)
[2021-04-02] MEDS: Aspirin 81 mg Enteric Coated Tablet PO SCH (08:57)
[2021-04-02] MEDS: Pregabalin 75 MG CAP PO SCH (08:57)
[2021-04-02] MEDS: Dexamethasone 4 mg/ml Vial SLOW IVP SCH (08:57)
[2021-04-02] MEDS: Lantus 1000 UNITS/10 ML VIAL SC SCH ×2 (08:58→21:44)
[2021-04-02] MEDS: HumaLOG 300 UNITS/3 ML VIAL SC SCH ×4 (08:58→21:48)
[2021-04-02] MEDS: Cholecalciferol 1,000 UNITS (25 MCG) TAB PO SCH ×2 (09:08→21:40)
[2021-04-02] MEDS: Meropenem 500 MG in Sodium Chloride 0.9% 100 ML IVPB SCH (15:08)
[2021-04-02] MEDS: cefTRIAXone\\ROCEPHIN 2 GM in Sodium Chloride 0.9% 100 ML IVPB SCH (15:42)
[2021-04-02] MEDS: Famotidine 20 MG TAB PO SCH (21:39)
[2021-04-02] MEDS: Atorvastatin Calcium 40 MG TAB PO SCH (21:40)
[2021-04-03] MEDS: Ventolin HFA Inhaler 60 PUFF INHALER INH SCH ×4 (01:45→19:45)
[2021-04-03 06:15] LABS: ALT (SGPT) 51 U/L (8-55); AST (SGOT) 45 U/L (5-34); Albumin 3.3 g/dL (3.4-4.8); Alkaline Phosphatase 143 U/L (40-110); Anion Gap 18 mmol/L (10-20); BUN (Urea Nitrogen) 82 mg/dL (9.8-20.1); Bilirubin, Total 0.3 mg/dL (0.2-1.2); Calc. Creatinine Clearance 14 mL/min (70-130); Calcium 8.2 mg/dL (7.8-10.44); Carbon Dioxide 26 mmol/L (23-31); Chloride 98 mmol/L (98-107); Globulin 2.3 g/dL (2.4-3.5); Glucose 190 mg/dL (80-115); Magnesium 1.8 mg/dL (1.6-2.6); Phosphorus 5.4 mg/dL (2.3-4.7); Potassium 4.1 mmol/L (3.5-5.1); Protein, Total 5.6 g/dL (5.8-8.1); Sodium 138 mmol/L (136-145)
[2021-04-03 06:52] LABS: #Eosinphils 0.1 10x3/uL (0.0-0.5); #Monocytes 1.3 10x3/uL (0.0-1.1); #Neutrophils 10.9 10x3/uL (1.5-8.4); %Basophils 0.1 % (0.0-2.0); %Eosinophils 0.5 % (0.0-6.0); %Lymphocytes 8.3 % (18.0-47.0); %Monocytes 9.3 % (0.0-10.0); %Neutrophils 79.5 % (40.0-75.0); Hemoglobin 7.5 g/dL (12.0-15.5); Mean Corpuscular HGB CONC 33.6 g/dL (32.0-36.0); Mean Corpuscular Hemoglobin 29.8 pg (27.0-33.0); Mean Corpuscular Volume 88.5 fl (81.6-98.3); Mean Platelet Volume 12.9 fl (7.4-10.4); Platelet Count 54 10x3/uL (150-450); RBC Distribution Width 14.4 % (11.5-14.5); Red Blood Cell (RBC) Count 2.52 10x6/uL (3.90-5.03); White Blood Cell (WBC) Count 13.7 10x3/uL (3.5-10.5)
[2021-04-03] MEDS: Fluconazole 100 MG TAB PO SCH (08:45)
[2021-04-03] MEDS: Amlodipine 10 MG TAB PO SCH (08:45)
[2021-04-03] MEDS: Cholecalciferol 1,000 UNITS (25 MCG) TAB PO SCH ×2 (08:45→21:25)
[2021-04-03] MEDS: Pregabalin 75 MG CAP PO SCH (08:45)
[2021-04-03] MEDS: Fidaxomicin 200 MG TAB PO SCH ×2 (08:45→21:25)
[2021-04-03] MEDS: Metoprolol Tartrate 25 MG TAB PO SCH ×2 (08:45→21:25)
[2021-04-03] MEDS: Icosapent Ethyl 1 GM CAPSULE PO SCH ×2 (08:45→16:10)
[2021-04-03] MEDS: Aspirin 81 mg Enteric Coated Tablet PO SCH (08:45)
[2021-04-03] MEDS: Dexamethasone 4 mg/ml Vial SLOW IVP SCH (08:45)
[2021-04-03] MEDS: HumaLOG 300 UNITS/3 ML VIAL SC SCH ×4 (08:46→21:27)
[2021-04-03] MEDS: Lantus 1000 UNITS/10 ML VIAL SC SCH ×2 (08:46→21:26)
[2021-04-03] MEDS: cefTRIAXone\\ROCEPHIN 2 GM in Sodium Chloride 0.9% 100 ML IVPB SCH (15:56)
[2021-04-03] MEDS: Atorvastatin Calcium 40 MG TAB PO SCH (21:25)
[2021-04-03] MEDS: Famotidine 20 MG TAB PO SCH (21:25)
[2021-04-03] MEDS: Acetaminophen 325 MG TAB PO PRN (21:47)
[2021-04-03] MEDS: Benzonatate 100 MG CAP PO PRN (21:48)
[2021-04-04] MEDS: Ventolin HFA Inhaler 60 PUFF INHALER INH SCH ×4 (01:45→19:00)
[2021-04-04 03:40] LABS: #Neutrophils 9.4 10x3/uL (1.5-8.4); %Basophils 0.1 % (0.0-2.0); %Lymphocytes 7.1 % (18.0-47.0); %Monocytes 8.9 % (0.0-10.0); %Neutrophils 81.3 % (40.0-75.0); Mean Corpuscular HGB CONC 33.5 g/dL (32.0-36.0); Mean Corpuscular Hemoglobin 29.8 pg (27.0-33.0); Mean Corpuscular Volume 88.9 fl (81.6-98.3); Mean Platelet Volume 13.2 fl (7.4-10.4); Platelet Count 71 10x3/uL (150-450); RBC Distribution Width 14.3 % (11.5-14.5); Red Blood Cell (RBC) Count 2.35 10x6/uL (3.90-5.03); White Blood Cell (WBC) Count 11.5 10x3/uL (3.5-10.5)
[2021-04-04 04:02] LABS: ALT (SGPT) 54 U/L (8-55); AST (SGOT) 48 U/L (5-34); Albumin 3.3 g/dL (3.4-4.8); Alkaline Phosphatase 149 U/L (40-110); Anion Gap 23 mmol/L (10-20); BUN (Urea Nitrogen) Greater than 125 mg/dL (9.8-20.1); Bilirubin, Total 0.2 mg/dL (0.2-1.2); Calc. Creatinine Clearance 0 mL/min (70-130); Carbon Dioxide 23 mmol/L (23-31); Chloride 94 mmol/L (98-107); Globulin 2.3 g/dL (2.4-3.5); Glucose 313 mg/dL (80-115); Magnesium 1.8 mg/dL (1.6-2.6); Phosphorus 7.8 mg/dL (2.3-4.7); Potassium 4.9 mmol/L (3.5-5.1); Protein, Total 5.6 g/dL (5.8-8.1); Sodium 135 mmol/L (136-145)
[2021-04-04] MEDS: HumaLOG 300 UNITS/3 ML VIAL SC PRN (04:46)
[2021-04-04] MEDS: Aspirin 81 mg Enteric Coated Tablet PO SCH (08:25)
[2021-04-04] MEDS: Dexamethasone 4 mg/ml Vial SLOW IVP SCH (08:25)
[2021-04-04] MEDS: Cholecalciferol 1,000 UNITS (25 MCG) TAB PO SCH ×2 (08:25→21:30)
[2021-04-04] MEDS: Metoprolol Tartrate 25 MG TAB PO SCH ×2 (08:25→21:30)
[2021-04-04] MEDS: Fidaxomicin 200 MG TAB PO SCH ×2 (08:25→21:31)
[2021-04-04] MEDS: Icosapent Ethyl 1 GM CAPSULE PO SCH ×2 (08:25→17:05)
[2021-04-04] MEDS: Fluconazole 100 MG TAB PO SCH (08:25)
[2021-04-04] MEDS: Pregabalin 75 MG CAP PO SCH (08:25)
[2021-04-04] MEDS: Amlodipine 10 MG TAB PO SCH (08:25)
[2021-04-04] MEDS: HumaLOG 300 UNITS/3 ML VIAL SC SCH ×4 (08:26→21:36)
[2021-04-04] MEDS: Lantus 1000 UNITS/10 ML VIAL SC SCH ×2 (08:26→21:35)
[2021-04-04 15:13] LABS: SARS-CoV-2 PCR by NAA Not Detected (NotDetected)
[2021-04-04] MEDS: cefTRIAXone\\ROCEPHIN 2 GM in Sodium Chloride 0.9% 100 ML IVPB SCH (17:05)
[2021-04-04] MEDS: Famotidine 20 MG TAB PO SCH (21:30)
[2021-04-04] MEDS: Atorvastatin Calcium 40 MG TAB PO SCH (21:30)
[2021-04-05] MEDS: Ventolin HFA Inhaler 60 PUFF INHALER INH SCH ×4 (01:00→19:35)
[2021-04-05 04:15] LABS: #Monocytes 0.9 10x3/uL (0.0-1.1); #Neutrophils 9.5 10x3/uL (1.5-8.4); %Basophils 0.1 % (0.0-2.0); %Lymphocytes 8.9 % (18.0-47.0); %Monocytes 7.5 % (0.0-10.0); %Neutrophils 78.7 % (40.0-75.0); Hemoglobin 5.8 g/dL (12.0-15.5); Mean Corpuscular HGB CONC 34.3 g/dL (32.0-36.0); Mean Corpuscular Hemoglobin 30.1 pg (27.0-33.0); Mean Corpuscular Volume 87.6 fl (81.6-98.3); Mean Platelet Volume 13.7 fl (7.4-10.4); Platelet Count 85 10x3/uL (150-450); RBC Distribution Width 14.3 % (11.5-14.5); Red Blood Cell (RBC) Count 1.93 10x6/uL (3.90-5.03); White Blood Cell (WBC) Count 12.1 10x3/uL (3.5-10.5)
[2021-04-05 04:37] LABS: ALT (SGPT) 44 U/L (8-55); AST (SGOT) 34 U/L (5-34); Alkaline Phosphatase 110 U/L (40-110); Anion Gap 25 mmol/L (10-20); Bilirubin, Total 0.2 mg/dL (0.2-1.2); Calc. Creatinine Clearance 0 mL/min (70-130); Calcium 7.7 mg/dL (7.8-10.44); Carbon Dioxide 19 mmol/L (23-31); Chloride 96 mmol/L (98-107); Glucose 73 mg/dL (80-115); Magnesium 1.9 mg/dL (1.6-2.6); Phosphorus 8.8 mg/dL (2.3-4.7); Potassium 5.3 mmol/L (3.5-5.1); Sodium 135 mmol/L (136-145)
[2021-04-05 04:48] LABS: BUN (Urea Nitrogen) 175 mg/dL (9.8-20.1)
[2021-04-05] MEDS: Icosapent Ethyl 1 GM CAPSULE PO SCH ×2 (08:59→15:33)
[2021-04-05] MEDS: HumaLOG 300 UNITS/3 ML VIAL SC SCH ×3 (08:59→15:33)
[2021-04-05] MEDS: Amlodipine 10 MG TAB PO SCH (08:59)
[2021-04-05] MEDS: Cholecalciferol 1,000 UNITS (25 MCG) TAB PO SCH ×2 (09:00→22:17)
[2021-04-05] MEDS: Metoprolol Tartrate 25 MG TAB PO SCH ×2 (09:00→22:18)
[2021-04-05] MEDS: Dexamethasone 4 mg/ml Vial SLOW IVP SCH (09:00)
[2021-04-05] MEDS: Fidaxomicin 200 MG TAB PO SCH ×2 (09:00→22:18)
[2021-04-05] MEDS: Lantus 1000 UNITS/10 ML VIAL SC SCH (09:00)
[2021-04-05] MEDS: Pregabalin 75 MG CAP PO SCH (09:00)
[2021-04-05] MEDS ORDERED: Pantoprazole 40 MG VIAL IVP SCH (09:45)
[2021-04-05] MEDS ORDERED: Dextrose 50% Abboject 50 ML SYRINGE ONE (11:39)
[2021-04-05] MEDS ORDERED: Tuberculin PPD 0.1 ML VIAL I-DERMAL SCH ×2 (14:00)
[2021-04-05 15:05] LABS: #Monocytes 1.4 10x3/uL (0.0-1.1); #Neutrophils 9.7 10x3/uL (1.5-8.4); %Basophils 0.2 % (0.0-2.0); %Eosinophils 0.2 % (0.0-6.0); %Lymphocytes 10.1 % (18.0-47.0); %Monocytes 10.8 % (0.0-10.0); %Neutrophils 75.1 % (40.0-75.0); Hemoglobin 9.7 g/dL (12.0-15.5); Mean Corpuscular HGB CONC 34.9 g/dL (32.0-36.0); Mean Corpuscular Hemoglobin 30.4 pg (27.0-33.0); Mean Corpuscular Volume 87.1 fl (81.6-98.3); Mean Platelet Volume 12.5 fl (7.4-10.4); Platelet Count 83 10x3/uL (150-450); RBC Distribution Width 14.4 % (11.5-14.5); Red Blood Cell (RBC) Count 3.19 10x6/uL (3.90-5.03); White Blood Cell (WBC) Count 12.9 10x3/uL (3.5-10.5)
[2021-04-05] MEDS: cefTRIAXone\\ROCEPHIN 2 GM in Sodium Chloride 0.9% 100 ML IVPB SCH (15:33)
[2021-04-05] MEDS ORDERED: Dextrose 50% Abboject 50 ML SYRINGE SLOW IVP PRN (15:52)
[2021-04-05] MEDS ORDERED: PROPOFOL 20 ML ONE ×2 (16:02→16:23)
[2021-04-05] MEDS ORDERED: Dextrose 50% Abboject 50 ML SYRINGE SLOW IVP SCH (16:14)
[2021-04-05] MEDS ORDERED: EPINEPHrine 1 MG/10 ML Abboject SYRINGE ONE (16:19)
[2021-04-05] MEDS: Atorvastatin Calcium 40 MG TAB PO SCH (22:17)
[2021-04-05] MEDS: Pantoprazole 40 MG VIAL IVP SCH (22:18)
[2021-04-06] MEDS: Ventolin HFA Inhaler 60 PUFF INHALER INH SCH ×4 (01:08→22:36)
[2021-04-06 05:30] LABS: #Eosinphils 0.2 10x3/uL (0.0-0.5); #Monocytes 1.6 10x3/uL (0.0-1.1); #Neutrophils 9.2 10x3/uL (1.5-8.4); %Basophils 0.2 % (0.0-2.0); %Eosinophils 1.4 % (0.0-6.0); %Lymphocytes 11.8 % (18.0-47.0); %Monocytes 12.3 % (0.0-10.0); %Neutrophils 71.9 % (40.0-75.0); Hemoglobin 8.8 g/dL (12.0-15.5); Mean Corpuscular HGB CONC 34.8 g/dL (32.0-36.0); Mean Corpuscular Hemoglobin 30.9 pg (27.0-33.0); Mean Corpuscular Volume 88.8 fl (81.6-98.3); Mean Platelet Volume 12.8 fl (7.4-10.4); Platelet Count 84 10x3/uL (150-450); RBC Distribution Width 14.6 % (11.5-14.5); Red Blood Cell (RBC) Count 2.85 10x6/uL (3.90-5.03); White Blood Cell (WBC) Count 12.7 10x3/uL (3.5-10.5)
[2021-04-06 05:51] LABS: Anion Gap 19 mmol/L (10-20); BUN (Urea Nitrogen) 87 mg/dL (9.8-20.1); Calc. Creatinine Clearance 18 mL/min (70-130); Calcium 7.6 mg/dL (7.8-10.44); Carbon Dioxide 22 mmol/L (23-31); Chloride 100 mmol/L (98-107); Glucose 129 mg/dL (80-115); Potassium 4.4 mmol/L (3.5-5.1); Sodium 137 mmol/L (136-145)
[2021-04-06] MEDS ORDERED: EPINEPHrine 1 MG/ML AMP ONE (06:37)
[2021-04-06] MEDS ORDERED: Bupivacaine PF 0.5% 30 ML VIAL ONE (06:37)
[2021-04-06] MEDS ORDERED: PROPOFOL 20 ML ONE (07:21)
[2021-04-06] MEDS ORDERED: Ondansetron PF 4 MG/2 ML Vial ONE (07:21)
[2021-04-06] MEDS ORDERED: Fentanyl 100 MCG/2 ML VIAL ONE (07:21)
[2021-04-06] MEDS ORDERED: Lidocaine 1% PF 5 ML VIAL ONE (07:22)
[2021-04-06] MEDS ORDERED: PHENYLEPHRINE-NS 100 MCG/ML 10 ML SYRINGE ONE (07:37)
[2021-04-06] MEDS: Icosapent Ethyl 1 GM CAPSULE PO SCH ×2 (08:29→17:34)
[2021-04-06] MEDS: Pantoprazole 40 MG VIAL IVP SCH ×2 (08:29→21:31)
[2021-04-06] MEDS: Pregabalin 75 MG CAP PO SCH (08:29)
[2021-04-06] MEDS: Cholecalciferol 1,000 UNITS (25 MCG) TAB PO SCH ×2 (08:29→21:30)
[2021-04-06] MEDS: Amlodipine 10 MG TAB PO SCH (08:30)
[2021-04-06] MEDS: Metoprolol Tartrate 25 MG TAB PO SCH ×2 (08:30→21:31)
[2021-04-06] MEDS: Fidaxomicin 200 MG TAB PO SCH ×2 (08:31→21:31)
[2021-04-06] MEDS: Lantus 1000 UNITS/10 ML VIAL SC SCH ×2 (08:40→22:47)
[2021-04-06 09:33] VITALS: BMI 24.5
[2021-04-06 13:24] LABS: Hemoglobin A1c 6.7 % (4.0-6.0)
[2021-04-06] MEDS: cefTRIAXone\\ROCEPHIN 2 GM in Sodium Chloride 0.9% 100 ML IVPB SCH (17:08)
[2021-04-06] MEDS: Atorvastatin Calcium 40 MG TAB PO SCH (21:31)
[2021-04-07] MEDS: Ventolin HFA Inhaler 60 PUFF INHALER INH SCH ×4 (01:00→19:00)
[2021-04-07 04:23] LABS: Anion Gap 20 mmol/L (10-20); BUN (Urea Nitrogen) 115 mg/dL (9.8-20.1); Calc. Creatinine Clearance 12 mL/min (70-130); Calcium 7.5 mg/dL (7.8-10.44); Carbon Dioxide 20 mmol/L (23-31); Chloride 100 mmol/L (98-107); Glucose 352 mg/dL (80-115); Potassium 5.4 mmol/L (3.5-5.1); Sodium 135 mmol/L (136-145)
[2021-04-07 04:47] LABS: #Eosinphils 0.6 10x3/uL (0.0-0.5); #Monocytes 1.4 10x3/uL (0.0-1.1); %Basophils 0.1 % (0.0-2.0); %Eosinophils 3.9 % (0.0-6.0); %Lymphocytes 7.1 % (18.0-47.0); %Monocytes 9.8 % (0.0-10.0); %Neutrophils 77.1 % (40.0-75.0); Hemoglobin 8.9 g/dL (12.0-15.5); Mean Corpuscular HGB CONC 33.2 g/dL (32.0-36.0); Mean Corpuscular Hemoglobin 30.6 pg (27.0-33.0); Mean Corpuscular Volume 92.1 fl (81.6-98.3); Mean Platelet Volume 12.3 fl (7.4-10.4); Platelet Count 89 10x3/uL (150-450); RBC Distribution Width 14.7 % (11.5-14.5); Red Blood Cell (RBC) Count 2.91 10x6/uL (3.90-5.03); White Blood Cell (WBC) Count 14.2 10x3/uL (3.5-10.5)
[2021-04-07] MEDS: HumaLOG 300 UNITS/3 ML VIAL SC PRN ×2 (05:04→21:27)
[2021-04-07] MEDS ORDERED: Tuberculin PPD 0.1 ML VIAL I-DERMAL SCH (08:00)
[2021-04-07 08:29] LABS: Hep B Surf Ag Non-Reactive S/CO (NonReactive)
[2021-04-07 08:36] LABS: HBSAg Index 0.16 S/CO (0-0.99)
[2021-04-07] MEDS: Lantus 1000 UNITS/10 ML VIAL SC SCH ×2 (10:27→21:27)
[2021-04-07] MEDS: Icosapent Ethyl 1 GM CAPSULE PO SCH ×2 (10:27→17:37)
[2021-04-07] MEDS ORDERED: Diltiazem 125 MG in Sodium Chloride 0.9% 100 ML IVPB SCH (12:30)
[2021-04-07] MEDS: Amlodipine 10 MG TAB PO SCH (12:49)
[2021-04-07] MEDS: Dexamethasone 4 mg/ml Vial SLOW IVP SCH (13:21)
[2021-04-07] MEDS: Pantoprazole 40 MG VIAL IVP SCH ×2 (13:22→21:26)
[2021-04-07] MEDS: Cholecalciferol 1,000 UNITS (25 MCG) TAB PO SCH ×2 (13:29→21:26)
[2021-04-07] MEDS: Metoprolol Tartrate 25 MG TAB PO SCH ×2 (13:29→21:26)
[2021-04-07] MEDS: Aspirin 81 mg Enteric Coated Tablet PO SCH (13:29)
[2021-04-07] MEDS: Pregabalin 75 MG CAP PO SCH (13:29)
[2021-04-07] MEDS ORDERED: Metoprolol Tartrate 25 MG TAB PO SCH (14:00)
[2021-04-07] MEDS ORDERED: READ PPD TEST SITE PO SCH (14:00)
[2021-04-07] MEDS: Fidaxomicin 200 MG TAB PO SCH ×2 (14:46→21:26)
[2021-04-07] MEDS: cefTRIAXone\\ROCEPHIN 2 GM in Sodium Chloride 0.9% 100 ML IVPB SCH (17:37)
[2021-04-07 20:19] LABS: Hep C IgG Ab Non-Reactive (NonReactive); Hep C Index 0.06 S/CO (0-0.79)
[2021-04-07 20:23] LABS: HBSAB Concentration 83.92 mIU/mL; Hep B Core Total Ab Non-Reactive (NonReactive); Hep B Core Total Index 0.09 S/CO (0-0.79); Hep B Surf AB Reactive (NonReactive)
[2021-04-07] MEDS: Atorvastatin Calcium 40 MG TAB PO SCH (21:26)
[2021-04-08] MEDS: Ventolin HFA Inhaler 60 PUFF INHALER INH SCH ×3 (01:00→19:16)
[2021-04-08 03:59] LABS: #Monocytes 0.5 10x3/uL (0.0-1.1); #Neutrophils 7.2 10x3/uL (1.5-8.4); %Lymphocytes 5.6 % (18.0-47.0); %Monocytes 6.4 % (0.0-10.0); %Neutrophils 85.6 % (40.0-75.0); Hemoglobin 7.8 g/dL (12.0-15.5); Mean Corpuscular HGB CONC 33.2 g/dL (32.0-36.0); Mean Corpuscular Hemoglobin 30.6 pg (27.0-33.0); Mean Corpuscular Volume 92.2 fl (81.6-98.3); Mean Platelet Volume 13.2 fl (7.4-10.4); Platelet Count 91 10x3/uL (150-450); RBC Distribution Width 14.6 % (11.5-14.5); Red Blood Cell (RBC) Count 2.55 10x6/uL (3.90-5.03); White Blood Cell (WBC) Count 8.4 10x3/uL (3.5-10.5)
[2021-04-08 04:13] LABS: Anion Gap 19 mmol/L (10-20); BUN (Urea Nitrogen) 60 mg/dL (9.8-20.1); Calc. Creatinine Clearance 19 mL/min (70-130); Calcium 7.8 mg/dL (7.8-10.44); Carbon Dioxide 23 mmol/L (23-31); Chloride 103 mmol/L (98-107); Glucose 278 mg/dL (80-115); Magnesium 1.9 mg/dL (1.6-2.6); Potassium 4.8 mmol/L (3.5-5.1); Sodium 140 mmol/L (136-145)
[2021-04-08] MEDS: HumaLOG 300 UNITS/3 ML VIAL SC PRN ×3 (06:16→21:31)
[2021-04-08 06:57] LABS: Hypochromia SLIGHT = 6-15 cells (100X) (0-5/hpf); Platelet Morphology Comment Appears Decreased
[2021-04-08] MEDS: Lantus 1000 UNITS/10 ML VIAL SC SCH ×2 (08:39→21:30)
[2021-04-08] MEDS: Dexamethasone 4 mg/ml Vial SLOW IVP SCH (08:39)
[2021-04-08] MEDS: Pantoprazole 40 MG VIAL IVP SCH ×2 (08:39→20:17)
[2021-04-08] MEDS: Cholecalciferol 1,000 UNITS (25 MCG) TAB PO SCH ×2 (08:40→20:17)
[2021-04-08] MEDS: Fidaxomicin 200 MG TAB PO SCH ×2 (08:40→20:18)
[2021-04-08] MEDS: Icosapent Ethyl 1 GM CAPSULE PO SCH ×2 (08:40→16:14)
[2021-04-08] MEDS: Metoprolol Tartrate 25 MG TAB PO SCH ×2 (08:40→20:18)
[2021-04-08] MEDS: Aspirin 81 mg Enteric Coated Tablet PO SCH (08:40)
[2021-04-08] MEDS: Pregabalin 75 MG CAP PO SCH (08:40)
[2021-04-08] MEDS: cefTRIAXone\\ROCEPHIN 2 GM in Sodium Chloride 0.9% 100 ML IVPB SCH (16:13)
[2021-04-08] MEDS: Atorvastatin Calcium 40 MG TAB PO SCH (20:17)
[2021-04-09] MEDS: Ventolin HFA Inhaler 60 PUFF INHALER INH SCH ×3 (01:00→07:35)
[2021-04-09 05:34] LABS: Anion Gap 23 mmol/L (10-20); BUN (Urea Nitrogen) 97 mg/dL (9.8-20.1); Calc. Creatinine Clearance 13 mL/min (70-130); Calcium 7.9 mg/dL (7.8-10.44); Carbon Dioxide 21 mmol/L (23-31); Chloride 103 mmol/L (98-107); Glucose 125 mg/dL (80-115); Potassium 4.6 mmol/L (3.5-5.1); Sodium 142 mmol/L (136-145)
[2021-04-09 05:57] LABS: #Monocytes 0.9 10x3/uL (0.0-1.1); #Neutrophils 11.6 10x3/uL (1.5-8.4); %Basophils 0.1 % (0.0-2.0); %Eosinophils 0.1 % (0.0-6.0); %Lymphocytes 6.5 % (18.0-47.0); %Monocytes 6.8 % (0.0-10.0); %Neutrophils 85.2 % (40.0-75.0); Hemoglobin 7.6 g/dL (12.0-15.5); Mean Corpuscular HGB CONC 33.8 g/dL (32.0-36.0); Mean Corpuscular Hemoglobin 30.6 pg (27.0-33.0); Mean Corpuscular Volume 90.7 fl (81.6-98.3); Mean Platelet Volume 12.5 fl (7.4-10.4); Platelet Count 96 10x3/uL (150-450); RBC Distribution Width 14.8 % (11.5-14.5); Red Blood Cell (RBC) Count 2.48 10x6/uL (3.90-5.03); White Blood Cell (WBC) Count 13.6 10x3/uL (3.5-10.5)
[2021-04-09 08:33] VITALS: TEMP 97.4
[2021-04-09] MEDS ORDERED: READ PPD TEST SITE PO SCH (09:00)
[2021-04-09] MEDS: Dexamethasone 4 mg/ml Vial SLOW IVP SCH (10:23)
[2021-04-09] MEDS: Fidaxomicin 200 MG TAB PO SCH (10:24)
[2021-04-09] MEDS: Metoprolol Tartrate 25 MG TAB PO SCH (10:24)
[2021-04-09] MEDS: Aspirin 81 mg Enteric Coated Tablet PO SCH (10:24)
[2021-04-09] MEDS: Icosapent Ethyl 1 GM CAPSULE PO SCH (10:24)
[2021-04-09] MEDS: Pregabalin 75 MG CAP PO SCH (10:25)
[2021-04-09] MEDS: Lantus 1000 UNITS/10 ML VIAL SC SCH (10:25)
[2021-04-09] MEDS: Cholecalciferol 1,000 UNITS (25 MCG) TAB PO SCH (10:25)
[2021-04-09] MEDS: Pantoprazole 40 MG VIAL IVP SCH (10:26)
[2021-04-09 15:55] VITALS: BP 162/78
[2021-04-09] MEDS: Acetaminophen 325 MG TAB PO PRN (16:46)
[2021-04-09] MEDS: cefTRIAXone\\ROCEPHIN 2 GM in Sodium Chloride 0.9% 100 ML IVPB SCH (16:57)
== END 2021-04-09 17:55 | DRG 853 ==
LOC: CSHERS 15:07 → CSHTELE 03-06 02:25 → CSHIMCU 03-30 08:34 → CSHTELE 04-04 13:48
PROVIDERS: ADMIT Family Medicine; ATTEND Family Medicine
PROC: 0Y6M0Z9 Detachment at Right Foot, Partial 1st Ray, Open Approach (ICD-10-PCS; principal; 2021-03-18)
PROC: 30233N1 Transfusion of Nonautologous Red Blood Cells into Peripheral Vein, Percutaneous Approach (ICD-10-PCS; 2021-03-21)
PROC: 06HY33Z Insertion of Infusion Device into Lower Vein, Percutaneous Approach (ICD-10-PCS; 2021-03-25)
PROC: 5A1D70Z Performance of Urinary Filtration, Intermittent, Less than 6 Hours Per Day (ICD-10-PCS; 2021-03-25)
PROC: 8E0ZXY6 Isolation (ICD-10-PCS; 2021-03-27)
PROC: 0W3P8ZZ Control Bleeding in Gastrointestinal Tract, Via Natural or Artificial Opening Endoscopic (ICD-10-PCS; 2021-04-05)
PROC: 0JH63XZ Insertion of Tunneled Vascular Access Device into Chest Subcutaneous Tissue and Fascia, Percutaneous Approach (ICD-10-PCS; 2021-04-06)
PROC: 02HV33Z Insertion of Infusion Device into Superior Vena Cava, Percutaneous Approach (ICD-10-PCS; 2021-04-06)
PROC: B5181ZA Fluoroscopy of Superior Vena Cava using Low Osmolar Contrast, Guidance (ICD-10-PCS; 2021-04-06)
DX: A41.9 Sepsis, unspecified organism (principal); G93.41 Metabolic encephalopathy; I63.9 Cerebral infarction, unspecified; J96.01 Acute respiratory failure with hypoxia; N17.0 Acute kidney failure with tubular necrosis; K26.4 Chronic or unspecified duodenal ulcer with hemorrhage; U07.1 COVID-19; M86.8X7 Other osteomyelitis, ankle and foot; C49.A3 Gastrointestinal stromal tumor of small intestine; E87.2 Acidosis; E87.0 Hyperosmolality and hypernatremia; A04.72 Enterocolitis due to Clostridium difficile, not specified as recurrent; N39.0 Urinary tract infection, site not specified; J90 Pleural effusion, not elsewhere classified; D62 Acute posthemorrhagic anemia; E11.69 Type 2 diabetes mellitus with other specified complication; E11.628 Type 2 diabetes mellitus with other skin complications; L08.9 Local infection of the skin and subcutaneous tissue, unspecified; E87.6 Hypokalemia; E11.22 Type 2 diabetes mellitus with diabetic chronic kidney disease; N18.32 Chronic kidney disease, stage 3b; E86.0 Dehydration; E03.9 Hypothyroidism, unspecified; F32.A Depression, unspecified; E78.5 Hyperlipidemia, unspecified; E11.621 Type 2 diabetes mellitus with foot ulcer; I12.9 Hypertensive chronic kidney disease with stage 1 through stage 4 chronic kidney disease, or unspecified chronic kidney disease; L97.519 Non-pressure chronic ulcer of other part of right foot with unspecified severity; E11.319 Type 2 diabetes mellitus with unspecified diabetic retinopathy without macular edema; F41.9 Anxiety disorder, unspecified; D63.1 Anemia in chronic kidney disease; E11.65 Type 2 diabetes mellitus with hyperglycemia; J44.9 Chronic obstructive pulmonary disease, unspecified; I25.10 Atherosclerotic heart disease of native coronary artery without angina pectoris; I65.22 Occlusion and stenosis of left carotid artery; E11.42 Type 2 diabetes mellitus with diabetic polyneuropathy; D69.6 Thrombocytopenia, unspecified; I48.91 Unspecified atrial fibrillation; E83.42 Hypomagnesemia; Z79.4 Long term (current) use of insulin; Z91.040 Latex allergy status; Z91.010 Allergy to peanuts; Z88.8 Allergy status to other drugs, medicaments and biological substances; Z89.421 Acquired absence of other right toe(s); Z95.5 Presence of coronary angioplasty implant and graft; Z91.19 Patient's noncompliance with other medical treatment and regimen
CPT/HCPCS: 36415; 36416; 36430; 36600; 70450; 70551; 71045; 71250; 74018; 74230; 76770; 80048; 80053; 80061; 80076; 80202; 80306; 81001; 82140; 82274; 82805; 83036; 83605; 83735; 83880; 84100; 84145; 84439; 84443; 84481; 85025; 85041; 85048; 85060; 85610; 85730; 86140; 86580; 86704; 86706; 86769; 86803; 86850; 86900; 86901; 87040; 87070; 87081; 87102; 87116; 87205; 87206; 87324; 87340; 87449; 88305; 90935; 93005; 93010; 93306; 93880; 93970; 94640; 94664; 94760; 96374; C1713; C1752; C9113; G0257; J0171; J0360; J0692; J0696; J1100; J1642; J1650; J1815; J1885; J1940; J2185; J2405; J2704; J3010; J3370; J3475; J3480; J3486; J3490; J7050; J7070; J7120; J7620; P9016; P9047; S0020; U0003; U0005